=== PATIENT | male | born 1995 | race Asian ===

== ENCOUNTER 2020-07-18 23:37 | Inpatient (IN) | payer BC ==
[~2020-07-18] VITALS: Ht 177.8 cm; Wt 88.0 kg
[2020-07-19] VITALS (15 sets, daily range): BP systolic 104–140; BP diastolic 7–81
--- NOTE | 2020-07-19 | NUR ---
ED Nurse Note: pt walked into ED from home c/o 05/05 RLQ abdominal pain since this morning along with n/v. Pt denies ingestion of food substance that might have caused onset of symptoms, denies fever chills. Pt is AAOx4, breathing even and unlabored, vital signs stable.
--- NOTE | 2020-07-19 00:13 | NUR ---
ED Nurse Note: blood collected and sent to lab
--- NOTE | 2020-07-19 00:19 | Emergency Room Report ---
History of Present Illness General Chief Complaint: Abdominal Pain Source: Patient Present Illness HPI 24-year-old male with no past medical history. He presents with chief plaint abdominal pain. Onset 2 days ago. Pain initially is diffuse and had vomiting. Vomiting initially was nonbloody nonbilious. He also has chills. Pain now localized to right lower quadrant. Pain is 9 out of 10. Worse with movement. Worse with palpation. Better with rest. Denies any diarrhea. Does have decreased appetite. Pain is sharp in nature. 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 COVID-19 Screening: Negative COVID-19 COVID-19 Testing Source: [facility] Patient History Past Medical History: see triage record, old chart reviewed Past Surgical History: none Pertinent Family History: none Social History: Denies: smoking Immunizations: other Reviewed Nursing Documentation: PMH: Agreed; PSxH: Agreed Nursing Documentation-PMH Past Medical History: No Stated History Review of Systems Eye: Denies: eye pain, blurred vision ENT: Denies: ear pain, nose congestion, throat swelling Respiratory: Denies: cough, shortness of breath Cardiovascular: Denies: chest pain, palpitations Gastrointestinal: Reports: abdominal pain, nausea, vomiting; Denies: diarrhea Musculoskeletal: Denies: back pain, joint pain Skin: Denies: rash Neurological: Denies: headache, numbness Endocrine: Denies: increased thirst, increased urine Hematologic/Lymphatic: Denies: easy bruising All Other Systems: negative except mentioned in HPI Physical Exam Vital Signs Date Time Temp Pulse Resp B/P (MAP) Pulse Ox O2 Delivery O2 Flow Rate FiO2 07/18/20 23:49 98.8 90 18 120/74 (89) 96 Room Air Vitals normal Sp02 EP Interpretation: reviewed, normal General Appearance: well appearing, no apparent distress, alert Head: normocephalic, atraumatic Eyes: bilateral eye PERRL, bilateral eye EOMI ENT: hearing grossly normal, normal pharynx Neck: full range of motion, supple, no meningismus Respiratory: chest non-tender, lungs clear, normal breath sounds Cardiovascular #1: regular rate, rhythm, no murmur Gastrointestinal: normal bowel sounds, no mass, no organomegaly, no bruit, non- distended, tenderness - Right lower quadrant Musculoskeletal: back normal, normal range of motion, gait/station normal Psychiatric: mood/affect normal Medical Decision Making Diagnostic Impression: Primary Impression: Appendicitis, acute Qualified Codes: K35.30 - Acute appendicitis with localized peritonitis, without perforation or gangrene Additional Impression: Hypokalemia ER Course This patient presents with abdominal pain the right lower quadrant. CT scan showed acute appendicitis without perforation. Antibiotics given. He has hypokalemia probably from vomiting. That was replaced. I contacted Dr. Maldonado for admission. I discussed the case with Dr. Eldridge for surgical consultation. CT/MRI/US Diagnostic Results CT/MRI/US Diagnostic Results : Imaging Test Ordered: CT abdomen and pelvis Impression Read by radiologist. Appendix is dilated to 2 cm in maximal diameter. It contains several appendicolith. There is surrounding mesenteric inflammation. Last Vital Signs Date Time Temp Pulse Resp B/P (MAP) Pulse Ox O2 Delivery O2 Flow Rate FiO2 07/19/20 00:00 90 18 Room Air 07/19/20 00:00 98.8 120/74 96 Status: improved Disposition: ADMITTED INPATIENT Condition: Serious Referrals: NOT CHOSEN IPA/,REFERRING (PCP) Ryan Denis MD Jul 19, 2020 00:19
--- NOTE | 2020-07-19 00:25 | NUR ---
ED Nurse Note: urine and COVID swab sent to lab
[2020-07-19 00:26] LABS: MEAN CORPUSCULAR VOLUME 83 FL (80-99); PLATELET COUNT 278 K/UL (150-450); RED BLOOD COUNT 5.57 M/UL (4.70-6.10); RED CELL DISTRIBUTION WIDTH 13.6 % (11.6-14.8); WHITE BLOOD COUNT 21.3 K/UL (4.8-10.8)
[2020-07-19] MEDS ORDERED: HYDROmorphone 1mg/ml Carpuject IVP ONE ×2 (00:30→01:15)
--- NOTE | 2020-07-19 00:31 | NUR ---
ED Nurse Note: pt went down to CT via w/c accompanied by CT staff. Pt in stable condition.
[2020-07-19 00:40] LABS: APPEARANCE,URINE CLEAR; BILIRUBIN, URINE NEGATIVE (NEGATIVE); GLUCOSE, URINE (UA) NEGATIVE (NEGATIVE); KETONES,URINE 2+ (NEGATIVE); LEUKOCYTE ESTERASE ,URINE 1+ (NEGATIVE); NITRITE,URINE NEGATIVE (NEGATIVE); PH,URINE 6.5 (4.5-8.0); PROTEIN,URINE 2+ (NEGATIVE); UROBILINOGEN,URINE NORMAL MG/DL (0.0-1.0)
[2020-07-19 00:46] LABS: ALANINE AMINOTRANSFERASE 33 U/L (12-78); ALBUMIN 4.1 G/DL (3.4-5.0); ALBUMIN/GLOBULIN RATIO 1.1 (1.0-2.7); ALKALINE PHOSPHATASE 64 U/L (46-116); ANION GAP 8 mmol/L (5-15); ASPARTATE AMINO TRANSFERASE 28 U/L (15-37); BILIRUBIN,TOTAL 1.2 MG/DL (0.2-1.0); BLOOD UREA NITROGEN 9 mg/dL (7-18); CARBON DIOXIDE 32 MMOL/L (21-32); CHLORIDE 95 MMOL/L (98-107); CREATININE 1.2 MG/DL (0.55-1.30); SODIUM 135 MMOL/L (136-145)
[2020-07-19 00:50] LABS: POTASSIUM 2.6 MMOL/L (3.5-5.1)
[2020-07-19 00:51] LABS: BILIRUBIN,DIRECT 0.3 MG/DL (0.0-0.3)
[2020-07-19 00:57] LABS: COLOR,URINE YELLOW
--- NOTE | 2020-07-19 00:58 | NUR ---
ED Nurse Note: pt back from CT in stable condition
--- NOTE | 2020-07-19 01:01 | NUR ---
ED Nurse Note: EDMD aware pt c/o 10/10 abdominal pain.
[2020-07-19] MEDS ORDERED: HYDROmorphone 1mg/ml Carpuject ONE (01:05)
--- NOTE | 2020-07-19 01:18 | Diagnostic Imaging Report ---
EXAM: CT Abdomen and Pelvis Without Intravenous Contrast CLINICAL HISTORY: ABD PAIN TECHNIQUE: Axial computed tomography images of the abdomen and pelvis without intravenous contrast. CTDI is 6.8 mGy and DLP is 407.1 mGy-cm. One or more of the following dose reduction techniques were used: automated exposure control, adjustment of the mA and/or kV according to patient size, use of iterative reconstruction technique. Coronal and sagittal reconstructions are performed COMPARISON: No relevant prior studies available. FINDINGS: Lung bases: Unremarkable. No mass. No consolidation. ABDOMEN: Liver: Mildly enlarged fatty liver. Gallbladder and bile ducts: Unremarkable. No calcified stones. No ductal dilation. Pancreas: Unremarkable. No ductal dilation. Spleen: Unremarkable. No splenomegaly. Adrenals: Unremarkable. No mass. Kidneys and ureters: Unremarkable. No obstructing stones. No hydronephrosis. Stomach and bowel: Unremarkable. No obstruction. No mucosal thickening. PELVIS: Appendix: Appendix is dilated to 2 cm in maximum diameter, contains several appendicoliths, measuring up to 9 mm, surrounded by moderate amount of mesenteric inflammation, characteristic of appendicitis. Mesenteric inflammation from appendicitis abuts right psoas and iliopsoas muscles Bladder: Unremarkable. No stones. Reproductive: Unremarkable as visualized. ABDOMEN and PELVIS: Intraperitoneal space: Small pockets gas from contained perforation adjacent to appendicitis is best seen on series 4 image 102. Bones/joints: No acute findings. Soft tissues: Unremarkable. Vasculature: Unremarkable. No abdominal aortic aneurysm. Lymph nodes: Unremarkable. No enlarged lymph nodes. IMPRESSION: 1. Appendicitis complicated by contained perforation. 2. Mildly enlarged fatty liver. <MYCVCSECTION> Communications: 07/19/20 01:25 Call Doctor Regarding Appendicitis, called Ryan Denis MD on 07/19 01:25 (-08:00)
[2020-07-19] MEDS ORDERED: Piperacillin/Tazobactam 3.375 GM in NS 110 ML IVPB ONE ×2 (01:30→16:15)
[2020-07-19] MEDS ORDERED: Morphine Sulfate 4mg/ml Inj (IV USE ONLY) IVP PRN (02:00)
--- NOTE | 2020-07-19 02:29 | NUR ---
ED Nurse Note: pt laying in bed awake, no complaints from pt at the moment. States stomach continues to feel tender, but does not want pain medicine at the moment.
--- NOTE | 2020-07-19 03:10 | NUR ---
TRANSFER TO FLOOR: Patient transferred to [facility] as ordered via w/c accompanied by staff midwife/apprenticeship director, per EDMD ok to transfer pt. Report given to BRANDON Gerard. Belongings and admission packet given to BRANDON Gerard. Family informed of transfer.
--- NOTE | 2020-07-19 04:17 | NUR ---
NURSE NOTES: Called with regards to admission orders, left a message, waiting for a call back.
--- NOTE | 2020-07-19 05:45 | NUR ---
NURSE NOTES: Received admission orders from . Entered and carried out.
[2020-07-19] MEDS ORDERED: Morphine Sulfate 2mg/ml Inj(IV/IM USE ONLY) IVP PRN ×2 (06:00→09:30)
--- NOTE | 2020-07-19 07:30 | NUR ---
NURSE NOTES: Patient lying in bed awake. Complain of pain 7/10 on abdominal area. Will administer pain medication as ordered. Skin intact and dry. IV dressing intact and dry. Bed lowest position and side rails up. Call light within reach. Will continue to monitor.
[2020-07-19] MEDS: Heparin 5000 units/ml inj SUBQ SCH ×2 (08:19→21:25)
--- NOTE | 2020-07-19 09:17 | NUR ---
NURSE NOTES: Spoke to regarding pain medication and new order received. Order read back and carried out.
--- NOTE | 2020-07-19 11:03 | Consultation ---
History of Present Illness General Date patient seen: Jul 19, 2020 Reason for Hospitalization: Abdominal Pain Present Illness HPI 24M otherwise healthy presented to [facility] c/o abd pain for 2 days. woke up 2 days ago in middle of night with discomfort, nausea and emesis. non blood b ilious emesis. felt it was stomach bug but then began to develop worsening RLQ tenderness. in ED noted to have leukocytosis and CT consistent with acute appy. surgery called to evaluate and assist with care. Allergies: Coded Allergies: No Known Allergies (Unverified , 07/18/20) COVID-19 Screening Contact w/high risk pt: No Experienced COVID-19 symptoms?: No Coronavirus symptoms experienc: Nausea/Vomiting Patient History History Provided By: Patient, Medical Record, PMD Healthcare decision maker Resuscitation status Advanced Directive on File Past Medical/Surgical History Past Medical/Surgical History: (1) Hypokalemia (2) Appendicitis, acute Review of Systems Review of Symptoms General ROS: no weight loss or fever Psychological ROS: no depression or mood changes, no memory loss Ophthalmic ROS: no visual changes or eye irritation ENT ROS: no nasal congestion, hearing loss, dizziness Allergy and Immunology ROS: no allergic symptoms or urticaria Hematological and Lymphatic ROS: no swollen glands, unusual bleeding or bruising Endocrine ROS: no polyuria, polydipsia, weight changes, temperature intolerance Respiratory ROS: no cough, shortness of breath, or wheezing Cardiovascular ROS: no chest pain or dyspnea on exertion Gastrointestinal ROS: + abdominal pain, -bright red blood in stool. Musculoskeletal ROS: no myalgias or arthralgias Neurological ROS: no TIA or stroke symptoms Dermatological ROS: no new or changing skin lesions, rashes or pruritis Physical Exam Physical Exam General appearance: alert, cooperative, no distress, appears stated age Head: Normocephalic, without obvious abnormality, atraumatic Eyes: conjunctivae/corneas clear. PERRL, EOM's intact. Fundi benign Throat: Lips, mucosa, and tongue normal. Teeth and gums normal Neck: supple, symmetrical, trachea midline, no adenopathy, thyroid: not enlarged, symmetric, no tenderness/mass/nodules, no carotid bruit and no JVD Lungs: clear to auscultation bilaterally Heart: regular rate and rhythm, S1, S2 normal, no murmur, click, rub or gallop Abdomen: soft, RLQ-tender. Bowel sounds normal. No masses, no organomegaly Extremities: extremities normal, atraumatic, no cyanosis or edema Pulses: 2+ and symmetric Skin: Skin color, texture, turgor normal. No rashes or lesions Neurologic: Grossly normal Last 24 Hour Vital Signs Date Time Temp Pulse Resp B/P (MAP) Pulse Ox O2 Delivery O2 Flow Rate FiO2 07/19/20 08:00 99.5 97 18 131/81 (98) 98 07/19/20 04:19 Room Air 07/19/20 03:10 99.0 92 18 128/83 100 Room Air 07/19/20 01:36 98.8 07/19/20 00:52 98.8 07/19/20 00:00 90 18 Room Air 07/19/20 00:00 98.8 90 18 120/74 96 Room Air 07/18/20 23:49 98.8 90 18 120/74 (89) 96 Room Air Intake and Output 07/18/20 07/19/20 19:00 07:00 Intake Total 1110 ml Output Total 0 ml Balance 1110 ml Intake Oral 0 ml IV Total 1110 ml Output Urine Total 0 ml # Voids 1 Laboratory Tests Test 07/19/20 00:05 07/19/20 00:17 White Blood Count 21.3 K/UL (4.8-10.8) H Red Blood Count 5.57 M/UL (4.70-6.10) Hemoglobin 17.0 G/DL (14.2-18.0) Hematocrit 46.0 % (42.0-52.0) Mean Corpuscular Volume 83 FL (80-99) Mean Corpuscular Hemoglobin 30.6 PG (27.0-31.0) Mean Corpuscular Hemoglobin Concent 37.1 G/DL (32.0-36.0) H Red Cell Distribution Width 13.6 % (11.6-14.8) Platelet Count 278 K/UL (150-450) Mean Platelet Volume 8.5 FL (6.5-10.1) Neutrophils (%) (Auto) % (45.0-75.0) Lymphocytes (%) (Auto) % (20.0-45.0) Monocytes (%) (Auto) % (1.0-10.0) Eosinophils (%) (Auto) % (0.0-3.0) Basophils (%) (Auto) % (0.0-2.0) Differential Total Cells Counted 100 Neutrophils % (Manual) 88 % (45-75) H Lymphocytes % (Manual) 8 % (20-45) L Monocytes % (Manual) 4 % (1-10) Eosinophils % (Manual) 0 % (0-3) Basophils % (Manual) 0 % (0-2) Band Neutrophils 0 % (0-8) Platelet Estimate Adequate Platelet Morphology Normal Sodium Level 135 MMOL/L (136-145) L Potassium Level 2.6 MMOL/L (3.5-5.1) *L Chloride Level 95 MMOL/L (98-107) L Carbon Dioxide Level 32 MMOL/L (21-32) Anion Gap 8 mmol/L (5-15) Blood Urea Nitrogen 9 mg/dL (7-18) Creatinine 1.2 MG/DL (0.55-1.30) Estimat Glomerular Filtration Rate > 60 mL/min (>60) Glucose Level 125 MG/DL (74-106) H Calcium Level 9.0 MG/DL (8.5-10.1) Total Bilirubin 1.2 MG/DL (0.2-1.0) H Direct Bilirubin 0.3 MG/DL (0.0-0.3) Aspartate Amino Transf (AST/SGOT) 28 U/L (15-37) Alanine Aminotransferase (ALT/SGPT) 33 U/L (12-78) Alkaline Phosphatase 64 U/L (46-116) Total Protein 7.7 G/DL (6.4-8.2) Albumin 4.1 G/DL (3.4-5.0) Globulin 3.6 g/dL Albumin/Globulin Ratio 1.1 (1.0-2.7) Lipase 55 U/L (73-393) L Urine Color Yellow Urine Appearance Clear Urine pH 6.5 (4.5-8.0) Urine Specific [place] 1.015 (1.005-1.035) Urine Protein 2+ (NEGATIVE) H Urine Glucose (UA) Negative (NEGATIVE) Urine Ketones 2+ (NEGATIVE) H Urine Blood 2+ (NEGATIVE) H Urine Nitrite Negative (NEGATIVE) Urine Bilirubin Negative (NEGATIVE) Urine Urobilinogen Normal MG/DL (0.0-1.0) Urine Leukocyte Esterase 1+ (NEGATIVE) H Urine RBC 2-4 /HPF (0 - 0) H Urine WBC 0-2 /HPF (0 - 0) Urine Squamous Epithelial Cells None /LPF (NONE/OCC) Urine Bacteria None /HPF (NONE) Microbiology Date/Time Source Procedure Growth Status 07/19/20 00:05 Nasopharynx SARS-CoV-2 RdRp Gene Assay - Final Complete Height (Feet): 5 Height (Inches): 10.00 Weight (Pounds): 194 Medications Current Medications Medications (Trade) Dose Ordered Sig/Jonathan Route PRN Reason Start Time Stop Time Status Last Admin Dose Admin Acetaminophen (Tylenol) 650 mg Q4H PRN ORAL Temp >100.5 07/19/20 05:45 08/18/20 05:44 Heparin Sodium (Porcine) (Heparin 5000 units/ml) 5,000 units EVERY 12 HOURS SUBQ 07/19/20 09:00 09/02/20 08:59 07/19/20 08:19 Levofloxacin 100 ml @ 100 mls/hr Q24H IVPB 07/19/20 09:00 07/26/20 08:59 07/19/20 08:28 Morphine Sulfate (Morphine Sulfate) 2 mg Q4H PRN IVP For Pain 07/19/20 09:30 07/26/20 09:29 Ondansetron HCl (Zofran) 4 mg Q4H PRN IVP Nausea & Vomiting 07/19/20 05:45 08/18/20 05:44 Sodium Chloride 1,000 ml @ 100 mls/hr Q10H IV 07/19/20 05:45 08/18/20 05:44 07/19/20 06:38 Assessment/Plan Problem List: (1) Hypokalemia ICD Codes: E87.6 - Hypokalemia SNOMED: 14878883 (2) Appendicitis, acute Assessment & Plan: acute appendicitis with microperf of air but no abscess leukocytosis RLQ tenderness npo iv fluids iv abx consent to or for lap vs open appy may need drain which was discussed with patient thank you ICD Codes: K35.80 - Unspecified acute appendicitis SNOMED: [id number] Qualifiers: Qualified Codes: K35.30 - Acute appendicitis with localized peritonitis, without perforation or gangrene Morgan Eldridge Jul 19, 2020 11:03
--- NOTE | 2020-07-19 11:04 | Pre-Procedure Note/Attestation ---
Pre-Procedure Note/Attestation Complete Prior to Procedure Procedure Narrative: laparoscopic appendectomy possible open Indications for Procedure Pre-Operative Diagnosis: acute appendicitis Attestation I attest that I discussed the nature of the procedure; its benefits; risks and complications; and alternatives (and the risks and benefits of such alternatives), prior to the procedure, with the patient (or the patient's legal sales representative womens health). I attest that, if there was a reasonable possibility of needing a blood transfusion, the patient (or the patient's legal sales representative womens health) was given the [facility] standardized written summary, pursuant to the [employer] Blood Safety Act ([place] Health and Safety Code # 1645, as amended). I attest that I re-evaluated the patient just prior to the surgery and that there has been no change in the patient's H&P, except as documented below: Morgan Eldridge Jul 19, 2020 11:04
[2020-07-19] MEDS ORDERED: Rocuronium Bromide 50mg/5ml Inj IV ONE (11:58)
[2020-07-19] MEDS ORDERED: Succinylcholine 20mg/ml 10ml vial ONE (11:58)
[2020-07-19] MEDS ORDERED: EPINEPHrine 1mg/1ml Amp ONE (11:59)
[2020-07-19] MEDS ORDERED: Bupivacaine 0.25% Inj 30ml INJ ONE (11:59)
[2020-07-19] MEDS ORDERED: Neostigmine 1mg/ml 10ml Inj ONE (12:00)
[2020-07-19] MEDS ORDERED: Sterile Water Irrig 1000ml IRRIG ONE (12:00)
[2020-07-19] MEDS ORDERED: LR 1000ml ONE (12:00)
[2020-07-19] MEDS ORDERED: NS Irrig 1000ml ONE (12:00)
[2020-07-19] MEDS ORDERED: NS Irrig 3000ml IRRIG ONE (12:00)
--- NOTE | 2020-07-19 12:00 | History and Physical Report ---
DATE OF ADMISSION: 07/19/2020 HISTORY OF PRESENT ILLNESS: This is a 24-year-old male, who came to the emergency room for having recurrent abdominal pain, nausea, and vomiting one day prior to admission. The patient also had a fever at home. His pain level is 10/10. PAST MEDICAL HISTORY: None. ALLERGIES: None. MEDICATIONS: None. PHYSICAL EXAMINATION: GENERAL: This is a young male, who is currently awake, still complaining pain. VITAL SIGNS: Blood pressure is 128/83, pulse 92, temperature 99. HEENT: NAD. CHEST: Bilaterally clear. CARDIOVASCULAR: Regular rhythm. ABDOMEN: Soft, diffuse tenderness in right lower quadrant. EXTREMITIES: CCE. LABORATORY DATA: White count 21,000, hemoglobin 17. Chemistry panel, potassium 2.6, sodium 135. ASSESSMENT: 1. Hypokalemia. 2. Acute appendicitis. 3. Abdominal pain. PLAN: We will admit on medical floor, start IV fluid, and IV antibiotic. Consider Surgery consult. Jm Maldonado M.D. DR: LOGAN JOB#: [id number] CC:
[2020-07-19] MEDS ORDERED: Midazolam 2mg/2ml Inj ONE (12:03)
[2020-07-19] MEDS ORDERED: fentaNYL 100 mcg/2 mL IV ONE (12:03)
[2020-07-19] MEDS ORDERED: Lidocaine 1% MPF 10mg/ml 5ml ONE (12:06)
--- NOTE | 2020-07-19 12:09 | NUR ---
NURSE NOTES: Patient off unit for surgery in stable condition.
[2020-07-19] MEDS ORDERED: Bacitracin 50000 Units Vial ONE ×2 (12:20→12:54)
--- NOTE | 2020-07-19 12:28 | General Progress Note ---
Subjective ROS Limited/Unobtainable: Yes Allergies: Coded Allergies: No Known Allergies (Unverified , 07/18/20) Objective Last 24 Hour Vital Signs Date Time Temp Pulse Resp B/P (MAP) Pulse Ox O2 Delivery O2 Flow Rate FiO2 07/19/20 12:00 100.4 97 18 126/7 (46) 97 07/19/20 09:00 Room Air 07/19/20 08:00 99.5 97 18 131/81 (98) 98 07/19/20 04:19 Room Air 07/19/20 03:10 99.0 92 18 128/83 100 Room Air 07/19/20 01:36 98.8 07/19/20 00:52 98.8 07/19/20 00:00 90 18 Room Air 07/19/20 00:00 98.8 90 18 120/74 96 Room Air 07/18/20 23:49 98.8 90 18 120/74 (89) 96 Room Air Intake and Output 07/18/20 07/19/20 19:00 07:00 Intake Total 1110 ml Output Total 0 ml Balance 1110 ml Intake Oral 0 ml IV Total 1110 ml Output Urine Total 0 ml # Voids 1 Laboratory Tests 07/19/20 00:05: White Blood Count 21.3H, Red Blood Count 5.57, Hemoglobin 17.0, Hematocrit 46.0, Mean Corpuscular Volume 83, Mean Corpuscular Hemoglobin 30.6, Mean Corpuscular Hemoglobin Concent 37.1H, Red Cell Distribution Width 13.6, Platelet Count 278, Mean Platelet Volume 8.5, Neutrophils (%) (Auto) , Lymphocytes (%) (Auto) , Monocytes (%) (Auto) , Eosinophils (%) (Auto) , Basophils (%) (Auto) , Differential Total Cells Counted 100, Neutrophils % (Manual) 88H, Lymphocytes % (Manual) 8L, Monocytes % (Manual) 4, Eosinophils % (Manual) 0, Basophils % (Manual) 0, Band Neutrophils 0, Platelet Estimate Adequate, Platelet Morphology Normal, Sodium Level 135L, Potassium Level 2.6*L, Chloride Level 95L, Carbon Dioxide Level 32, Anion Gap 8, Blood Urea Nitrogen 9, Creatinine 1.2, Estimat Glomerular Filtration Rate > 60, Glucose Level 125H, Calcium Level 9.0, Total Bilirubin 1.2H, Direct Bilirubin 0.3, Aspartate Amino Transf (AST/SGOT) 28, Alanine Aminotransferase (ALT/SGPT) 33, Alkaline Phosphatase 64, Total Protein 7.7, Albumin 4.1, Globulin 3.6, Albumin/Globulin Ratio 1.1, Lipase 55L 07/19/20 00:17: Urine Color Yellow, Urine Appearance Clear, Urine pH 6.5, Urine Specific [place] 1.015, Urine Protein 2+H, Urine Glucose (UA) Negative, Urine Ketones 2+H, Urine Blood 2+H, Urine Nitrite Negative, Urine Bilirubin Negative, Urine Urobilinogen Normal, Urine Leukocyte Esterase 1+H, Urine RBC 2-4H, Urine WBC 0-2, Urine Squamous Epithelial Cells None, Urine Bacteria None Height (Feet): 5 Height (Inches): 10.00 Weight (Pounds): 194 General Appearance: alert EENT: normal ENT inspection Neck: supple Cardiovascular: normal rate Respiratory/Chest: decreased breath sounds Abdomen: hypoactive bowel sounds, tender Extremities: non-tender Assessment/Plan Problem List: (1) Appendicitis, acute ICD Codes: K35.80 - Unspecified acute appendicitis SNOMED: [id number] Qualifiers: Qualified Codes: K35.30 - Acute appendicitis with localized peritonitis, without perforation or gangrene (2) Hypokalemia ICD Codes: E87.6 - Hypokalemia SNOMED: [id number] Assessment/Plan: going for surg today will fu post op rpeat labs in am Willam Mendes MD Jul 19, 2020 12:28
[2020-07-19] MEDS ORDERED: NeoSporin Gu Irrig 1ml Amp IRRIG ONE (12:54)
[2020-07-19] MEDS ORDERED: Morphine Sulfate 10mg/ml Inj ONE (12:59)
[2020-07-19] MEDS ORDERED: Glycopyrrolate 0.2mg/ml 1ml Vial ONE (12:59)
[2020-07-19] MEDS ORDERED: Sodium Chloride 10ml vial INJ ONE (12:59)
[2020-07-19] MEDS ORDERED: Ketorolac 30mg Inj ONE (13:00)
--- NOTE | 2020-07-19 13:14 | Anethesia Preoperative Eval ---
Anesthesia Pre-op PMH/ROS General Date of Evaluation: Jul 19, 2020 Time of Evaluation: 12:10 Anesthesiologist: Emma ASA Score: ASA 2 Mallampati Score Class I : Soft palate, uvula, fauces, pillars visible Class II: Soft palate, uvula, fauces visible Class III: Soft palate, base of uvula visible Class IV: Only hard plate visible Mallampati Classification: Class II Surgeon: Erin Diagnosis: Acute appendicitis Surgical Procedure: Appendectomy Anesthesia History: none Family History: no anesthesia problems Allergies: Coded Allergies: No Known Allergies (Unverified , 07/18/20) Medications: see eMAR Patient NPO?: Yes Past Medical History Cardiovascular: Denies: HTN, CAD, MT, valve dz, arrhythmia, other Pulmonary: Denies: asthma, COPD, ELENA, other Gastrointestinal/Genitourinary: Reports: GERD - mild; Denies: CRI, ESRD, other Neurologic/Psychiatric: Denies: dementia, CVA, depression/anxiety, TIA, other Endocrine: Denies: DM, hypothyroidism, steroids, other HEENT: Denies: cataract (L), cataract (R), glaucoma, AGUA CALIENTE (L), AGUA CALIENTE (R), other Hematology/Immune: Denies: anemia, DVT, bleeding disorder, other Musculoskeletal/Integumentary: Denies: OA, RA, DJD, DDD, edema, other Other: other - overweight PMH Narrative: Admitted for acute abdominal pain PSxH Narrative: none Anesthesia Pre-op Phys. Exam Physician Exam Last Vital Signs Date Time Temp Pulse Resp B/P (MAP) Pulse Ox O2 Delivery O2 Flow Rate FiO2 07/19/20 12:00 100.4 97 18 126/7 (46) 97 07/19/20 09:00 Room Air Constitutional: NAD Neurologic: CN 2-12 intact Cardiovascular: RRR, no M/R/G Respiratory: CTA Gastrointestinal: other - tenderness on palpation Airway Exam Mallampati Score: Class II MO: full Neck: flexible ROM: full Teeth: intact Dentures: no upper, no lower Anesthesia Pre-op A/P Labs Hematology Test 07/19/20 00:05 White Blood Count 21.3 K/UL (4.8-10.8) H Red Blood Count 5.57 M/UL (4.70-6.10) Hemoglobin 17.0 G/DL (14.2-18.0) Hematocrit 46.0 % (42.0-52.0) Mean Corpuscular Volume 83 FL (80-99) Mean Corpuscular Hemoglobin 30.6 PG (27.0-31.0) Mean Corpuscular Hemoglobin Concent 37.1 G/DL (32.0-36.0) H Red Cell Distribution Width 13.6 % (11.6-14.8) Platelet Count 278 K/UL (150-450) Mean Platelet Volume 8.5 FL (6.5-10.1) Neutrophils (%) (Auto) % (45.0-75.0) Lymphocytes (%) (Auto) % (20.0-45.0) Monocytes (%) (Auto) % (1.0-10.0) Eosinophils (%) (Auto) % (0.0-3.0) Basophils (%) (Auto) % (0.0-2.0) Differential Total Cells Counted 100 Neutrophils % (Manual) 88 % (45-75) H Lymphocytes % (Manual) 8 % (20-45) L Monocytes % (Manual) 4 % (1-10) Eosinophils % (Manual) 0 % (0-3) Basophils % (Manual) 0 % (0-2) Band Neutrophils 0 % (0-8) Platelet Estimate Adequate Platelet Morphology Normal Chemistry Test 07/19/20 00:05 Sodium Level 135 MMOL/L (136-145) L Potassium Level 2.6 MMOL/L (3.5-5.1) *L Chloride Level 95 MMOL/L (98-107) L Carbon Dioxide Level 32 MMOL/L (21-32) Anion Gap 8 mmol/L (5-15) Blood Urea Nitrogen 9 mg/dL (7-18) Creatinine 1.2 MG/DL (0.55-1.30) Estimat Glomerular Filtration Rate > 60 mL/min (>60) Glucose Level 125 MG/DL (74-106) H Calcium Level 9.0 MG/DL (8.5-10.1) Total Bilirubin 1.2 MG/DL (0.2-1.0) H Direct Bilirubin 0.3 MG/DL (0.0-0.3) Aspartate Amino Transf (AST/SGOT) 28 U/L (15-37) Alanine Aminotransferase (ALT/SGPT) 33 U/L (12-78) Alkaline Phosphatase 64 U/L (46-116) Total Protein 7.7 G/DL (6.4-8.2) Albumin 4.1 G/DL (3.4-5.0) Globulin 3.6 g/dL Albumin/Globulin Ratio 1.1 (1.0-2.7) Lipase 55 U/L (73-393) L Risk Assessment & Plan Assessment: ASA 2E Plan: GA with ETT PONV prevention Status Change Before Surgery: No Pre-Antibiotics Drug: Ancef 2gr Given Within 1 Hr of Incision: Yes Time Given: 12:38 Charlie Carter MD Jul 19, 2020 13:14
[2020-07-19] MEDS ORDERED: DiphenhydrAMINE 50mg/ml Inj IVP PRN (13:15)
[2020-07-19] MEDS ORDERED: Metoclopramide 10mg/2ml Inj IVP PRN (13:15)
[2020-07-19] MEDS ORDERED: LR 1000ml 1,000 ML IVLG SCH (13:15)
[2020-07-19] MEDS ORDERED: Meperidine 25mg/1ml Inj (FOR RIGORS ONLY) IV PRN (13:15)
[2020-07-19] MEDS ORDERED: Ketorolac 30mg Inj IV PRN (13:15)
--- NOTE | 2020-07-19 14:07 | Immediate Post-Op Evaluation ---
Immediate Post-Op Evalulation Immediate Post-Op Evalulation Procedure: Laparoscopic appendectomy Date of Evaluation: Jul 19, 2020 Time of Evaluation: 14:06 IV Fluids: 1000 Blood Products: NONE Estimated Blood Loss: 50 Urinary Output: n/a Blood Pressure Systolic: 128 Blood Pressure Diastolic: 70 Pulse Rate: 96 Respiratory Rate: 22 O2 Sat by Pulse Oximetry: 99 Temperature (Fahrenheit): 98.9 Pain Score (1-10): 2 Nausea: No Vomiting: No Complications none Patient Status: reacts, patent, extubated, none Hydration Status: adequate Charlie Carter MD Jul 19, 2020 14:07
--- NOTE | 2020-07-19 14:08 | Brief Operative Note ---
Immediate Post Operative Note Operative Note Pre-op Diagnosis: acute appendicitis Procedure: lap appy washout and drain Post-op Diagnosis: acute appendicitis with generalized fecal perforation / contamination Surgeon: sim Anesthesiologist: marixa Anesthesia: general, local Specimen: yes Complications: none Condition: stable Fluids: see Estimated Blood Loss: minimal Drains: DRAGAN Implant(s) used?: No Morgan Eldridge Jul 19, 2020 14:08
--- NOTE | 2020-07-19 14:51 | NUR ---
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
--- NOTE | 2020-07-19 15:10 | NUR ---
NURSE NOTES: Peg TAYLOR brought patient by bed in stable condition. Complain of pain 2/10 on surgical site. Surgical dressing intact and dry. DRAGAN x 1 patent and draining well. IV dressing intact and dry. Bed lowest position and side rails up. Call light within reach. Will continue to monitor.
--- NOTE | 2020-07-19 16:01 | Operative Note - Dictated ---
DATE OF OPERATION: 07/19/2020 PREOPERATIVE DIAGNOSIS: Acute appendicitis. POSTOPERATIVE DIAGNOSIS: Acute appendicitis with generalized perforation with fecalith material. OPERATION PERFORMED: 1. Laparoscopic appendectomy. 2. Abdominal washout with drain placement. ATTENDING SURGEON: Morgna Eldridge M.D. DESIGN MAKER: None. ANESTHESIOLOGIST: Charlie Carter M.D. ANESTHESIA: General MANAGER MEDICAL WRITING plus local. ESTIMATED BLOOD LOSS: Minimal. IV FLUIDS: Please see anesthesia records. COMPLICATIONS: None. DRAINS: A 19-[place] Jim left in the pelvis. SPECIMENS: Appendix, sent to Pathology for review. WOUND CLASSIFICATION: Class 4. INDICATIONS FOR PROCEDURE: This is a very pleasant 24-year-old male who presented to [facility] [place] with worsening bowel pain for 2 days with associated nausea and emesis. The patient was identified to have significant leukocytosis and a CT scan consistent with acute appendicitis with some bubbles of small gas around the appendix consistent with considerations of a small contained perforation, but no abscess. The patient was tender in the right lower quadrant and diffusely as well. More peritonitis in the right lower quadrant focally. Surgery was indicated and recommended. Risks, benefits, and alternatives discussed in detail. Consent obtained from the patient. OPERATIVE NOTE: The patient was taken to the operating room and placed on the operating table in supine position with the left arm tucked. All bony prominences were well padded. SCDs were placed. Preoperative time-out was taken identifying the patient, procedure, operative site, and surgical staff. General anesthesia was induced. The patient was intubated. The abdomen was prepped and draped in the standard surgical fashion. Local anesthetic was infiltrated throughout the procedure. An infraumbilical incision was made and carried down through subcutaneous tissue to the fascia. Fascia was elevated and incised. Entry into the abdomen was obtained using open Nicolle technique. A 12 mm Nicolle trocar was inserted and the abdomen was insufflated to 12-15 mmHg. Immediately, foul odor was identified. Laparoscope was inserted and it was clearly identified the patient had generalized peritonitis. The peritoneal lining was inflamed. A portion of the small bowel quadrant was inflamed. There was seropurulent fecal material throughout the abdomen identified above the liver margin with some exudate as well as well as in the right lower quadrant and pelvis as well. Secondary trocars were placed under direct visualization beginning with a 12 mm in the left lower quadrant, followed by 5 mm suprapubic. No injury from trocar placement noted. Laparoscopic instruments were inserted and the fluid was suctioned out. Following this, the cecum was identified and gently followed the tenia down to the confluence, which was underlying some omental adhesions and some small bowel. Once this was maneuvered away, terminal ileum was identified and a large necrotic appendix was noted in the right lower quadrant with perforation and fecalith material throughout in the right lower quadrant with some of the pelvis fluid. Gentle dissection identified the appendix down to its base. The wound was made between the appendix and mesoappendix at the base. Laparoscopic linear stapler was used and the base of the appendix was divided without complication. Clips were used for hemostasis and viable base identified. The mesoappendix was elevated, dissected out, and in a similar fashion with laparoscopic linear stapler divided. It was clearly identified the mesoappendix was very edematous and with inflammation. No direct abscess was identified in the mesoappendix. Clips were used for hemostasis. The appendix was placed in endoscopic retrieval bag and removed from the abdomen. Given the intraoperative findings, the abdomen was irrigated with copious amounts of warm antibiotic normal saline. Approximately, 7 liters was irrigated within the abdominal cavity in all 4 quadrants and pelvis and approximately in total 7.5 liters were evacuated. Approximately 500 mL residual was noted as compared to the intake/output. Once this was completed and the fluid was clear in all quadrants and the pelvis, decision was made to leave a drain. A 19-[place] Jim drain was placed through the left lower quadrant port and placed into the pelvis. The drain was sutured in place using a 2-0 nylon suture. At this time, hemostasis was noted. The appendix was removed. Copious amounts of warm normal irrigation was done until clear. No other abnormalities or intraoperative complications identified. Secondary trocars were removed under direct visualization, followed by the umbilical trocar site. Abdomen was desufflated. Umbilical trocar site fascia reapproximated with [id number] 0 Vicryl suture. Remaining skin incision was reapproximated using 4-0 Monocryl subcuticular interrupted sutures. Steri-Strips and dressings and drain dressing was applied. The patient tolerated the procedure well, was extubated, and taken to postanesthetic care unit in a stable condition. Morgan Eldridge M.D. DR: JESSE JOB#: [id number] CC: NISHANT
--- NOTE | 2020-07-19 16:59 | NUR ---
NURSE NOTES: Patient voided 400 ml yellow urine. No complain of discomfort. Surgical dressing changed as ordered. Patient tolerated procedure well. Will continue to monitor.
--- NOTE | 2020-07-19 19:30 | NUR ---
NURSE HAND-OFF: Important Events on Shift: Surgery today Patient Status: Stable Diet: Clear liquid Pending Orders: N/A Pending Results/Labs:CBC, BMP on 07/20 Pending MD notification:N/A Latest Vital Signs: Temperature 98.7 , Pulse 97 , B/P 109 /62 , Respiratory Rate 18 , O2 SAT 99 , Nasal Cannula, O2 Flow Rate 6 . Vital Sign Comment: Stable Latest Fong Fall Score: 35 Fall Risk: Medium Risk Safety Measures: Call light Within Reach, Bed Alarm Zone 1, Side Rails Side Rails x2, Bed position Low and Locked. Fall Precautions: Yellow Socks Door Sign Patient Fall Education Report given to Maiteo RN. Patient in stable condition.
--- NOTE | 2020-07-19 19:30 | NUR ---
NURSE NOTES: Receive a report from BRANDON José.
--- NOTE | 2020-07-19 19:40 | NUR ---
NURSE NOTES: Pt is awake and alert. Pt says that pain got so much better after surgery. Noted soreness on surgical site but tolerating at this time. Will provide pain medication as needed by orders. Surgical site dressing kept dry and intact. DRAGAN is fulled with drainage. Emptied it out and keep bulb pressed. Encourage deep breathing and cough as post-op care. On SCDs bilateral. Call to RT for I/S. Call light within reach. Will continue to monitor.
[2020-07-19] MEDS: Piperacillin/Tazobactam 3.375 GM in NS 110 ML IVPB SCH (21:23)
[2020-07-19] MEDS: Morphine Sulfate 2mg/ml Inj(IV/IM USE ONLY) IVP PRN (21:28)
[2020-07-19] MEDS ORDERED: Piperacillin/Tazobactam 3.375 GM in NS 110 ML IVPB SCH (22:00)
[2020-07-20] VITALS: BP 106/69
[2020-07-20 04:00] VITALS: BP 121/72
[2020-07-20 05:57] LABS: HEMATOCRIT 40.4 % (42.0-52.0); MEAN CORPUSCULAR VOLUME 88 FL (80-99); PLATELET COUNT 167 K/UL (150-450); RED BLOOD COUNT 4.62 M/UL (4.70-6.10); RED CELL DISTRIBUTION WIDTH 12.3 % (11.6-14.8)
[2020-07-20] MEDS: Piperacillin/Tazobactam 3.375 GM in NS 110 ML IVPB SCH ×3 (06:05→22:10)
[2020-07-20 06:23] LABS: ANION GAP 5 mmol/L (5-15); BLOOD UREA NITROGEN 9 mg/dL (7-18); CARBON DIOXIDE 28 MMOL/L (21-32); CHLORIDE 99 MMOL/L (98-107); CREATININE 0.9 MG/DL (0.55-1.30); SODIUM 133 MMOL/L (136-145)
[2020-07-20 06:40] LABS: POTASSIUM 2.6 MMOL/L (3.5-5.1)
--- NOTE | 2020-07-20 06:45 | NUR ---
NURSE NOTES: Receive a call from Lab that potassium level is 2.6.
--- NOTE | 2020-07-20 06:50 | NUR ---
NURSE NOTES: Left a message to Dr. Maldonado for critical lab value and waiting for call back. Will continue to follow up.
--- NOTE | 2020-07-20 07:17 | NUR ---
NURSE NOTES: Receive new order from Dr. Maldonado d/quinton Gomez. Order noted and carried out. Will continue to monitor.
--- NOTE | 2020-07-20 07:45 | NUR ---
NURSE NOTES: Patient is in bed awake and able to verbalize needs. Stable. Denies severe pain or SOB at this time. Patient instructed to use call light for assistance, verbalized understanding. DRAGAN noted, will monitor output. Patient is in bed in locked and lowest position with call light within reach. All safety measures provided. WIll continue to monitor.
--- NOTE | 2020-07-20 07:45 | NUR ---
NURSE HAND-OFF: Important Events on Shift: S/P lap appendectomy yesterday. Pain medication x1. Vomiting in AM. Critical Value K: 2.6 Patient Status: [] Diet: [clear liquid diet] Pending Orders: [] Pending Results/Labs:[] Pending MD notification:[] Latest Vital Signs: Temperature 99.2 , Pulse 92 , B/P 121 /72 , Respiratory Rate 18 , O2 SAT 98 , Nasal Cannula, O2 Flow Rate 6 . Vital Sign Comment: [] Latest Fong Fall Score: 35 Fall Risk: Medium Risk Safety Measures: Call light Within Reach, Bed Alarm Zone 1, Side Rails Side Rails x2, Bed position Low and Locked. Fall Precautions: Door Sign Patient Fall Education Report given to BRANDON Romero.
[2020-07-20 08:00] VITALS: BP 130/85
[2020-07-20] MEDS ORDERED: NS 275ml ONE (08:18)
[2020-07-20] MEDS: Heparin 5000 units/ml inj SUBQ SCH ×2 (08:37→21:07)
--- NOTE | 2020-07-20 08:58 | 48 Hour Post Anesthesia Eval ---
Post Anesthesia Evaluation Procedure: Laparoscopic appendectomy Date of Evaluation: Jul 20, 2020 Time of Evaluation: 08:57 Blood Pressure Systolic: 128 0: 76 Pulse Rate: 86 Respiratory Rate: 22 Temperature (Fahrenheit): 97.6 O2 Sat by Pulse Oximetry: 98 Airway: patent Nausea: No Vomiting: No Pain Intensity: 3 Hydration Status: adequate Cardiopulmonary Status: stable Mental Status/LOC: patient returned to baseline Follow-up Care/Observations: n/a Post-Anesthesia Complications: none Follow-up care needed: N/A Charlie Carter MD Jul 20, 2020 08:58
--- NOTE | 2020-07-20 09:59 | General Progress Note ---
Subjective ROS Limited/Unobtainable: No Allergies: Coded Allergies: No Known Allergies (Unverified , 07/18/20) Objective Last 24 Hour Vital Signs Date Time Temp Pulse Resp B/P (MAP) Pulse Ox O2 Delivery O2 Flow Rate FiO2 07/20/20 08:58 86 22 98 07/20/20 08:00 98.9 83 24 130/85 (100) 98 07/20/20 04:00 99.2 92 18 121/72 (88) 98 07/20/20 00:00 99.8 87 18 106/69 (81) 97 07/19/20 21:00 Room Air 07/19/20 20:00 98.9 86 18 104/77 (86) 98 07/19/20 16:15 98.7 97 18 109/62 (78) 99 07/19/20 15:45 98.7 95 18 112/62 (79) 99 07/19/20 15:15 99.2 99 18 124/79 (94) 97 07/19/20 15:10 100.1 97 17 125/79 99 Nasal Cannula 6 07/19/20 14:55 99 21 115/73 99 Nasal Cannula 6 07/19/20 14:40 94 12 116/73 99 Nasal Cannula 6 07/19/20 14:25 91 11 116/67 100 Simple Mask 6 07/19/20 14:15 93 11 116/71 100 Simple Mask 6 07/19/20 14:07 96 22 99 07/19/20 14:05 95 12 126/71 100 Simple Mask 6 07/19/20 14:00 105 18 128/78 100 Simple Mask 6 07/19/20 13:54 100.0 111 28 140/71 100 Simple Mask 6 07/19/20 12:00 100.4 97 18 126/7 (46) 97 Intake and Output 07/19/20 07/20/20 19:00 07:00 Intake Total 1200 ml 250 ml Output Total 610 ml 1670 ml Balance 590 ml -1420 ml Intake Oral 250 ml IV Total 1200 ml Output Urine Total 400 ml 1100 ml Emesis 450 ml Drainage Total 160 ml 120 ml Estimated Blood Loss 50 ml # Voids 1 3 Laboratory Tests 07/20/20 05:04: White Blood Count 10.0#, Red Blood Count 4.62L, Hemoglobin 14.0L, Hematocrit 40.4L, Mean Corpuscular Volume 88, Mean Corpuscular Hemoglobin 30.4, Mean Corpuscular Hemoglobin Concent 34.7, Red Cell Distribution Width 12.3, Platelet Count 167, Mean Platelet Volume 8.5, Neutrophils (%) (Auto) , Lymphocytes (%) (Auto) , Monocytes (%) (Auto) , Eosinophils (%) (Auto) , Basophils (%) (Auto) , Sodium Level 133L, Potassium Level 2.6*L, Chloride Level 99, Carbon Dioxide Level 28, Anion Gap 5, Blood Urea Nitrogen 9, Creatinine 0.9, Estimat Glomerular Filtration Rate > 60, Glucose Level 107H, Calcium Level 8.0L Height (Feet): 5 Height (Inches): 10.00 Weight (Pounds): 194 General Appearance: no apparent distress EENT: normal ENT inspection Neck: supple Cardiovascular: normal rate Respiratory/Chest: chest wall non-tender Abdomen: soft, other - post surgical Extremities: non-tender Assessment/Plan Problem List: (1) Appendicitis, acute ICD Codes: K35.80 - Unspecified acute appendicitis SNOMED: 97250094 Qualifiers: Qualified Codes: K35.30 - Acute appendicitis with localized peritonitis, without perforation or gangrene (2) Hypokalemia ICD Codes: E87.6 - Hypokalemia SNOMED: 84884095 Assessment/Plan: s/p surg yesterday will fu post op rpeat labs in am Willam Mendes MD Jul 20, 2020 09:59
--- NOTE | 2020-07-20 11:28 | Surgery Progress Note ---
Surgery Progress Note Subjective Procedure Performed lap appy washout and drain Additional Comments s/p lap appy. noted intraop to have acute diffuse perforated appy with contents in all quadrants s/p lap appyw ith washout drain with >150cc serous out pain from incisions +n/v +diarrhea not ready for d/c needs iv abx needs pain control cont iv fluids keep on clears if desired but do not advance diet activity as tolerated drain care dressings prn saturation IS Objective Last 24 Hour Vital Signs Date Time Temp Pulse Resp B/P (MAP) Pulse Ox O2 Delivery O2 Flow Rate FiO2 07/20/20 09:00 Room Air 07/20/20 08:58 86 22 98 07/20/20 08:00 98.9 83 24 130/85 (100) 98 07/20/20 04:00 99.2 92 18 121/72 (88) 98 07/20/20 00:00 99.8 87 18 106/69 (81) 97 07/19/20 21:00 Room Air 07/19/20 20:00 98.9 86 18 104/77 (86) 98 07/19/20 16:15 98.7 97 18 109/62 (78) 99 07/19/20 15:45 98.7 95 18 112/62 (79) 99 07/19/20 15:15 99.2 99 18 124/79 (94) 97 07/19/20 15:10 100.1 97 17 125/79 99 Nasal Cannula 6 07/19/20 14:55 99 21 115/73 99 Nasal Cannula 6 07/19/20 14:40 94 12 116/73 99 Nasal Cannula 6 07/19/20 14:25 91 11 116/67 100 Simple Mask 6 07/19/20 14:15 93 11 116/71 100 Simple Mask 6 07/19/20 14:07 96 22 99 07/19/20 14:05 95 12 126/71 100 Simple Mask 6 07/19/20 14:00 105 18 128/78 100 Simple Mask 6 07/19/20 13:54 100.0 111 28 140/71 100 Simple Mask 6 07/19/20 12:00 100.4 97 18 126/7 (46) 97 I&O Intake and Output 07/19/20 07/20/20 18:59 06:59 Intake Total 1200 ml 250 ml Output Total 610 ml 1670 ml Balance 590 ml -1420 ml Intake Oral 250 ml IV Total 1200 ml Output Urine Total 400 ml 1100 ml Emesis 450 ml Drainage Total 160 ml 120 ml Estimated Blood Loss 50 ml # Voids 1 3 Laboratory Tests Test 07/20/20 05:04 White Blood Count 10.0 K/UL (4.8-10.8) # Red Blood Count 4.62 M/UL (4.70-6.10) L Hemoglobin 14.0 G/DL (14.2-18.0) L Hematocrit 40.4 % (42.0-52.0) L Mean Corpuscular Volume 88 FL (80-99) Mean Corpuscular Hemoglobin 30.4 PG (27.0-31.0) Mean Corpuscular Hemoglobin Concent 34.7 G/DL (32.0-36.0) Red Cell Distribution Width 12.3 % (11.6-14.8) Platelet Count 167 K/UL (150-450) Mean Platelet Volume 8.5 FL (6.5-10.1) Neutrophils (%) (Auto) % (45.0-75.0) Lymphocytes (%) (Auto) % (20.0-45.0) Monocytes (%) (Auto) % (1.0-10.0) Eosinophils (%) (Auto) % (0.0-3.0) Basophils (%) (Auto) % (0.0-2.0) Sodium Level 133 MMOL/L (136-145) L Potassium Level 2.6 MMOL/L (3.5-5.1) *L Chloride Level 99 MMOL/L (98-107) Carbon Dioxide Level 28 MMOL/L (21-32) Anion Gap 5 mmol/L (5-15) Blood Urea Nitrogen 9 mg/dL (7-18) Creatinine 0.9 MG/DL (0.55-1.30) Estimat Glomerular Filtration Rate > 60 mL/min (>60) Glucose Level 107 MG/DL (74-106) H Calcium Level 8.0 MG/DL (8.5-10.1) L Assessment Post-op Diagnosis acute appendicitis with generalized fecal perforation / contamination Plan Problems: (1) Hypokalemia (2) Appendicitis, acute Assessment & Plan: acute appendicitis with microperf of air but no abscess leukocytosis RLQ tenderness npo iv fluids iv abx consent to or for lap vs open appy may need drain which was discussed with patient thank you Morgan Eldridge Jul 20, 2020 11:28
[2020-07-20 12:00] VITALS: BP 121/83
[2020-07-20] MEDS: D5 1/2NS w/KCl 40meq 1000ml 1,000 ML IV SCH (12:09)
[2020-07-20] MEDS: Morphine Sulfate 4mg/ml Inj (IV USE ONLY) IVP PRN ×2 (12:10→16:35)
--- NOTE | 2020-07-20 13:40 | General Progress Note ---
Subjective Allergies: Coded Allergies: No Known Allergies (Unverified , 07/18/20) Subjective recurrent nausea and vomiting interctable abdo pain Objective Last 24 Hour Vital Signs Date Time Temp Pulse Resp B/P (MAP) Pulse Ox O2 Delivery O2 Flow Rate FiO2 07/20/20 12:00 98.3 65 24 121/83 (96) 98 07/20/20 09:00 Room Air 07/20/20 08:58 86 22 98 07/20/20 08:00 98.9 83 24 130/85 (100) 98 07/20/20 04:00 99.2 92 18 121/72 (88) 98 07/20/20 00:00 99.8 87 18 106/69 (81) 97 07/19/20 21:00 Room Air 07/19/20 20:00 98.9 86 18 104/77 (86) 98 07/19/20 16:15 98.7 97 18 109/62 (78) 99 07/19/20 15:45 98.7 95 18 112/62 (79) 99 07/19/20 15:15 99.2 99 18 124/79 (94) 97 07/19/20 15:10 100.1 97 17 125/79 99 Nasal Cannula 6 07/19/20 14:55 99 21 115/73 99 Nasal Cannula 6 07/19/20 14:40 94 12 116/73 99 Nasal Cannula 6 07/19/20 14:25 91 11 116/67 100 Simple Mask 6 07/19/20 14:15 93 11 116/71 100 Simple Mask 6 07/19/20 14:07 96 22 99 07/19/20 14:05 95 12 126/71 100 Simple Mask 6 07/19/20 14:00 105 18 128/78 100 Simple Mask 6 07/19/20 13:54 100.0 111 28 140/71 100 Simple Mask 6 Intake and Output 07/19/20 07/20/20 19:00 07:00 Intake Total 1200 ml 250 ml Output Total 610 ml 1670 ml Balance 590 ml -1420 ml Intake Oral 250 ml IV Total 1200 ml Output Urine Total 400 ml 1100 ml Emesis 450 ml Drainage Total 160 ml 120 ml Estimated Blood Loss 50 ml # Voids 1 3 Laboratory Tests 07/20/20 05:04: White Blood Count 10.0#, Red Blood Count 4.62L, Hemoglobin 14.0L, Hematocrit 40.4L, Mean Corpuscular Volume 88, Mean Corpuscular Hemoglobin 30.4, Mean Corpu scular Hemoglobin Concent 34.7, Red Cell Distribution Width 12.3, Platelet Count 167, Mean Platelet Volume 8.5, Neutrophils (%) (Auto) , Lymphocytes (%) (Auto) , Monocytes (%) (Auto) , Eosinophils (%) (Auto) , Basophils (%) (Auto) , Sodium Level 133L, Potassium Level 2.6*L, Chloride Level 99, Carbon Dioxide Level 28, Anion Gap 5, Blood Urea Nitrogen 9, Creatinine 0.9, Estimat Glomerular Filtration Rate > 60, Glucose Level 107H, Calcium Level 8.0L Height (Feet): 5 Height (Inches): 10.00 Weight (Pounds): 194 General Appearance: alert EENT: PERRL/EOMI Neck: supple Cardiovascular: normal rate Respiratory/Chest: lungs clear Abdomen: absent bowel sounds, guarding Genitourinary/Rectal: normal genital exam Extremities: non-tender Assessment/Plan Assessment/Plan: ac appendicitis s/p appendectomy rec n/v hypokalemia iv kcl npo ivf iv abx surgery on the case Da Maldonado MD Jul 20, 2020 13:40
[2020-07-20] MEDS: Ketorolac 30mg Inj IV SCH ×2 (15:47→21:02)
[2020-07-20 16:00] VITALS: BP 134/93
--- NOTE | 2020-07-20 19:40 | NUR ---
NURSE NOTES: Receive a report from BRANDON Romero.
--- NOTE | 2020-07-20 19:45 | NUR ---
NURSE HAND-OFF: Important Events on Shift: pain management, antibiotics, ivf Patient Status: stable Diet: clear Pending Orders: n/a Pending Results/Labs:n/a Pending MD notification:n/a Latest Vital Signs: Temperature 98.2 , Pulse 74 , B/P 134 /93 , Respiratory Rate 18 , O2 SAT 98 , Nasal Cannula, O2 Flow Rate 6 . Vital Sign Comment: n/a Latest Fong Fall Score: 35 Fall Risk: Medium Risk Safety Measures: Call light Within Reach, Bed Alarm Zone 1, Side Rails Side Rails x2, Bed position Low and Locked. Fall Precautions: Door Sign Patient Fall Education Report given to Merly TAYLOR.
--- NOTE | 2020-07-20 19:50 | NUR ---
NURSE NOTES: Pt is awake and alert. Surgical site pain feeling tightness but tolerating at this time. Will provide pain medication as ordered. No nausea noted. Surgical site dressing remain clean and intact. DRAGAN inserted state with bulb compressed and drained with pinkish color. Pt is ambulating in the room and walking to bathroom steady gaits, tolerating. Encourage I/S 10times every hour while awake. On IV fluid and ATB treatment. Call light within reach. Will continue to monitor.
[2020-07-20 20:00] VITALS: BP 147/93
--- NOTE | 2020-07-20 22:10 | NUR ---
NURSE NOTES: Scheduled Toradol 30mg IVS was not effective for pain/tightness on surgical site. Given prn Morphine 2mg IVS. No nausea noted but pt is afraid of drinking water for vomiting. Will continue to monitor.
[2020-07-20] MEDS: Morphine Sulfate 2mg/ml Inj(IV/IM USE ONLY) IVP PRN (22:13)
[2020-07-21] VITALS: BP 119/69
[2020-07-21] MEDS: D5 1/2NS w/KCl 40meq 1000ml 1,000 ML IV SCH ×4 (00:04→21:02)
[2020-07-21] MEDS: Ketorolac 30mg Inj IV SCH ×4 (03:30→20:55)
[2020-07-21 04:00] VITALS: BP 130/72
[2020-07-21] MEDS: Morphine Sulfate 2mg/ml Inj(IV/IM USE ONLY) IVP PRN ×2 (06:08→14:20)
[2020-07-21] MEDS: Piperacillin/Tazobactam 3.375 GM in NS 110 ML IVPB SCH ×3 (06:08→21:02)
[2020-07-21 06:35] LABS: BASOPHILS % (AUTO) 1.2 % (0.0-2.0); EOSINOPHILS % (AUTO) 0.1 % (0.0-3.0); HEMATOCRIT 37.4 % (42.0-52.0); HEMOGLOBIN 13.2 G/DL (14.2-18.0); LYMPHOCYTES % (AUTO) 6.5 % (20.0-45.0); MEAN CORPUSCULAR VOLUME 86 FL (80-99); MONOCYTES % (AUTO) 9.5 % (1.0-10.0); NEUTROPHILS % (AUTO) 82.8 % (45.0-75.0); PLATELET COUNT 170 K/UL (150-450); RED BLOOD COUNT 4.35 M/UL (4.70-6.10); RED CELL DISTRIBUTION WIDTH 12.3 % (11.6-14.8); WHITE BLOOD COUNT 10.2 K/UL (4.8-10.8)
--- NOTE | 2020-07-21 06:45 | NUR ---
NURSE NOTES: Pt says that he feels like panic attack but after pain medication d/t pain scale 6/10, he feels better. VSS are stable. Will continue to monitor.
[2020-07-21 07:02] LABS: ALANINE AMINOTRANSFERASE 30 U/L (12-78); ALBUMIN 2.3 G/DL (3.4-5.0); ALBUMIN/GLOBULIN RATIO 0.7 (1.0-2.7); ALKALINE PHOSPHATASE 41 U/L (46-116); ANION GAP 3 mmol/L (5-15); ASPARTATE AMINO TRANSFERASE 15 U/L (15-37); BILIRUBIN,TOTAL 0.7 MG/DL (0.2-1.0); BLOOD UREA NITROGEN 10 mg/dL (7-18); CARBON DIOXIDE 30 MMOL/L (21-32); CHLORIDE 101 MMOL/L (98-107); CREATININE 0.9 MG/DL (0.55-1.30); POTASSIUM 3.2 MMOL/L (3.5-5.1); SODIUM 134 MMOL/L (136-145)
--- NOTE | 2020-07-21 07:12 | NUR ---
NURSE HAND-OFF: Important Events on Shift: pain medication x2. No nausea/ vomiting. BM x2-loose. 12hr our-DRAGAN output-100ml Patient Status: stable Diet: [clear liquid] Pending Orders: [] Pending Results/Labs:[] Pending MD notification:[] Latest Vital Signs: Temperature 98.1 , Pulse 60 , B/P 130 /72 , Respiratory Rate 18 , O2 SAT 95 , Nasal Cannula, O2 Flow Rate 6 . Vital Sign Comment: [] Latest Fong Fall Score: 35 Fall Risk: Medium Risk Safety Measures: Call light Within Reach, Bed Alarm Zone 1, Side Rails Side Rails x2, Bed position Low and Locked. Fall Precautions: Door Sign Patient Fall Education
--- NOTE | 2020-07-21 07:30 | NUR ---
HAND-OFF: Report given to BRANDON José. Round is made.
--- NOTE | 2020-07-21 07:30 | NUR ---
HAND-OFF: Report given to BRANDON José. Round is made.
--- NOTE | 2020-07-21 07:35 | NUR ---
NURSE NOTES: Patient lying in bed awake. Complain of pain 6/10 on abdominal area and pain medication given by car shifter nurse. Will continue to monitor. Surgical dressing intact and dry. [place] x1 patent and draining well. Bed lowest position and side rails up. Call light within reach. Will continue to monitor.
[2020-07-21 08:00] VITALS: BP 124/75
[2020-07-21] MEDS: Pantoprazole Inj IVP SCH (09:07)
[2020-07-21] MEDS: Heparin 5000 units/ml inj SUBQ SCH ×2 (09:17→20:53)
--- NOTE | 2020-07-21 09:56 | General Progress Note ---
Subjective ROS Limited/Unobtainable: Yes Allergies: Coded Allergies: No Known Allergies (Unverified , 07/18/20) Objective Last 24 Hour Vital Signs Date Time Temp Pulse Resp B/P (MAP) Pulse Ox O2 Delivery O2 Flow Rate FiO2 07/21/20 04:00 98.1 60 18 130/72 (91) 95 07/21/20 00:00 98.5 61 18 119/69 (86) 95 07/20/20 21:00 Room Air 07/20/20 20:00 98.1 61 18 147/93 (111) 97 07/20/20 16:00 98.2 74 18 134/93 (107) 98 07/20/20 12:00 98.3 65 24 121/83 (96) 98 Intake and Output 0 07/20/20 07/21/20 19:00 07:00 Intake Total 1350 ml Output Total 1170 ml Balance -1170 ml 1350 ml Intake Oral 150 ml IV Total 1200 ml Emesis 850 ml Drainage Total 320 ml # Voids 5 Laboratory Tests 07/21/20 05:40: White Blood Count 10.2, Red Blood Count 4.35L, Hemoglobin 13.2L, Hematocrit 37.4L, Mean Corpuscular Volume 86, Mean Corpuscular Hemoglobin 30.4, Mean Corpuscular Hemoglobin Concent 35.3, Red Cell Distribution Width 12.3, Platelet Count 170, Mean Platelet Volume 10.1, Neutrophils (%) (Auto) 82.8H, Lymphocytes (%) (Auto) 6.5L, Monocytes (%) (Auto) 9.5, Eosinophils (%) (Auto) 0.1, Basophils (%) (Auto) 1.2, Sodium Level 134L, Potassium Level 3.2L, Chloride Level 101, Carbon Dioxide Level 30, Anion Gap 3L, Blood Urea Nitrogen 10, Creatinine 0.9, Estimat Glomerular Filtration Rate > 60, Glucose Level 110H, Calcium Level 8.0L, Total Bilirubin 0.7, Aspartate Amino Transf (AST/SGOT) 15, Alanine Aminotransferase (ALT/SGPT) 30, Alkaline Phosphatase 41L, Total Protein 5.5L, Albumin 2.3L, Globulin 3.2, Albumin/Globulin Ratio 0.7L Height (Feet): 5 Height (Inches): 10.00 Weight (Pounds): 194 General Appearance: alert EENT: normal ENT inspection Neck: supple Cardiovascular: normal rate Respiratory/Chest: decreased breath sounds Abdomen: hyperactive bowel sounds - in place, hypoactive bowel sounds, other - post surg Assessment/Plan Problem List: (1) Appendicitis, acute ICD Codes: K35.80 - Unspecified acute appendicitis SNOMED: 83299577 Qualifiers: Qualified Codes: K35.30 - Acute appendicitis with localized peritonitis, without perforation or gangrene (2) Hypokalemia ICD Codes: E87.6 - Hypokalemia SNOMED: 56996333 Assessment/Plan: s/p surg will fu post op rpeat labs in am on clears pain control abx Willam Lindsey MD Jul 21, 2020 09:56
[2020-07-21 12:00] VITALS: BP 119/77
--- NOTE | 2020-07-21 14:02 | Surgery Progress Note ---
Surgery Progress Note Subjective Procedure Performed lap appy washout and drain Symptoms: improved, tolerating diet, voiding well, pain decreased Objective Last 24 Hour Vital Signs Date Time Temp Pulse Resp B/P (MAP) Pulse Ox O2 Delivery O2 Flow Rate FiO2 07/21/20 12:00 98.3 59 18 119/77 (91) 99 07/21/20 09:00 Room Air 07/21/20 08:00 98.6 73 18 124/75 (91) 98 07/21/20 04:00 98.1 60 18 130/72 (91) 95 07/21/20 00:00 98.5 61 18 119/69 (86) 95 07/20/20 21:00 Room Air 07/20/20 20:00 98.1 61 18 147/93 (111) 97 07/20/20 16:00 98.2 74 18 134/93 (107) 98 I&O Intake and Output 07/20/20 07/21/20 19:00 07:00 Intake Total 1350 ml Output Total 1170 ml Balance -1170 ml 1350 ml Intake Oral 150 ml IV Total 1200 ml Emesis 850 ml Drainage Total 320 ml # Voids 5 Dressing: dry Wound: clean Cardiovascular: RSR Respiratory: clear Abdomen: soft, non-tender, present bowel sounds Extremities: no tenderness, no cyanosis Laboratory Tests Test 07/21/20 05:40 White Blood Count 10.2 K/UL (4.8-10.8) Red Blood Count 4.35 M/UL (4.70-6.10) L Hemoglobin 13.2 G/DL (14.2-18.0) L Hematocrit 37.4 % (42.0-52.0) L Mean Corpuscular Volume 86 FL (80-99) Mean Corpuscular Hemoglobin 30.4 PG (27.0-31.0) Mean Corpuscular Hemoglobin Concent 35.3 G/DL (32.0-36.0) Red Cell Distribution Width 12.3 % (11.6-14.8) Platelet Count 170 K/UL (150-450) Mean Platelet Volume 10.1 FL (6.5-10.1) Neutrophils (%) (Auto) 82.8 % (45.0-75.0) H Lymphocytes (%) (Auto) 6.5 % (20.0-45.0) L Monocytes (%) (Auto) 9.5 % (1.0-10.0) Eosinophils (%) (Auto) 0.1 % (0.0-3.0) Basophils (%) (Auto) 1.2 % (0.0-2.0) Sodium Level 134 MMOL/L (136-145) L Potassium Level 3.2 MMOL/L (3.5-5.1) L Chloride Level 101 MMOL/L (98-107) Carbon Dioxide Level 30 MMOL/L (21-32) Anion Gap 3 mmol/L (5-15) L Blood Urea Nitrogen 10 mg/dL (7-18) Creatinine 0.9 MG/DL (0.55-1.30) Estimat Glomerular Filtration Rate > 60 mL/min (>60) Glucose Level 110 MG/DL (74-106) H Calcium Level 8.0 MG/DL (8.5-10.1) L Total Bilirubin 0.7 MG/DL (0.2-1.0) Aspartate Amino Transf (AST/SGOT) 15 U/L (15-37) Alanine Aminotransferase (ALT/SGPT) 30 U/L (12-78) Alkaline Phosphatase 41 U/L (46-116) L Total Protein 5.5 G/DL (6.4-8.2) L Albumin 2.3 G/DL (3.4-5.0) L Globulin 3.2 g/dL Albumin/Globulin Ratio 0.7 (1.0-2.7) L Assessment Post-op Diagnosis acute appendicitis with generalized fecal perforation / contamination Plan Problems: (1) Hypokalemia (2) Appendicitis, acute Assessment & Plan: acute appendicitis with microperf of air but no abscess leukocytosis RLQ tenderness npo iv fluids iv abx consent to or for lap vs open appy may need drain which was discussed with patient thank you Morgan Eldridge Jul 21, 2020 14:02
--- NOTE | 2020-07-21 15:05 | General Progress Note ---
Subjective Allergies: Coded Allergies: No Known Allergies (Unverified , 07/18/20) Subjective abdo pain better walking out side Objective Last 24 Hour Vital Signs Date Time Temp Pulse Resp B/P (MAP) Pulse Ox O2 Delivery O2 Flow Rate FiO2 07/21/20 12:00 98.3 59 18 119/77 (91) 99 07/21/20 09:00 Room Air 07/21/20 08:00 98.6 73 18 124/75 (91) 98 07/21/20 04:00 98.1 60 18 130/72 (91) 95 07/21/20 00:00 98.5 61 18 119/69 (86) 95 07/20/20 21:00 Room Air 07/20/20 20:00 98.1 61 18 147/93 (111) 97 07/20/20 16:00 98.2 74 18 134/93 (107) 98 Intake and Output 07/20/20 07/21/20 19:00 07:00 Intake Total 1350 ml Output Total 1170 ml Balance -1170 ml 1350 ml Intake Oral 150 ml IV Total 1200 ml Emesis 850 ml Drainage Total 320 ml # Voids 5 Laboratory Tests 07/21/20 05:40: White Blood Count 10.2, Red Blood Count 4.35L, Hemoglobin 13.2L, Hematocrit 37.4L, Mean Corpuscular Volume 86, Mean Corpuscular Hemoglobin 30.4, Mean Corpuscular Hemoglobin Concent 35.3, Red Cell Distribution Width 12.3, Platelet Count 170, Mean Platelet Volume 10.1, Neutrophils (%) (Auto) 82.8H, Lymphocytes (%) (Auto) 6.5L, Monocytes (%) (Auto) 9.5, Eosinophils (%) (Auto) 0.1, Basophils (%) (Auto) 1.2, Sodium Level 134L, Potassium Level 3.2L, Chloride Level 101, Carbon Dioxide Level 30, Anion Gap 3L, Blood Urea Nitrogen 10, Creatinine 0.9, Estimat Glomerular Filtration Rate > 60, Glucose Level 110H, Calcium Level 8.0L, Total Bilirubin 0.7, Aspartate Amino Transf (AST/SGOT) 15, Alanine Aminotransferase (ALT/SGPT) 30, Alkaline Phosphatase 41L, Total Protein 5.5L, Albumin 2.3L, Globulin 3.2, Albumin/Globulin Ratio 0.7L Height (Feet): 5 Height (Inches): 10.00 Weight (Pounds): 194 General Appearance: alert EENT: PERRL/EOMI Neck: supple Cardiovascular: normal rate Respiratory/Chest: lungs clear Abdomen: soft, tender Assessment/Plan Assessment/Plan: ac appendicitis s/p appendectomy rec n/v hypokalemia iv kcl leucocytosis better soft diet ivf iv abx surgery on the case Da Maldonado MD Jul 21, 2020 15:05
--- NOTE | 2020-07-21 15:47 | NUR ---
PT Note PT lorena completed, treatment initiated. Patient was able to ambulate without any AD; steady gait, denies any dizziness. Patient was instructed to increase time OOB and ambulation as tolerated. Patient is safe and independent in ambulation without any AD; no further PT needed at this time. Addendum: 07/21/20 at 1548 by DONNA RODRIGUEZ PT Amended: Links added.
[2020-07-21 16:00] VITALS: BP 119/82
--- NOTE | 2020-07-21 19:30 | NUR ---
NURSE HAND-OFF: Important Events on Shift:N/A Patient Status: Stable Diet: Clear liquid Pending Orders: N/A Pending Results/Labs:CBC,BMP on 07/22 Pending MD notification:N/A Latest Vital Signs: Temperature 98.4 , Pulse 74 , B/P 119 /82 , Respiratory Rate 18 , O2 SAT 98 , Nasal Cannula, O2 Flow Rate 6 . Vital Sign Comment: Stable Latest Fong Fall Score: 35 Fall Risk: Medium Risk Safety Measures: Call light Within Reach, Bed Alarm Zone 1, Side Rails Side Rails x2, Bed position Low and Locked. Fall Precautions: Yellow Socks Door Sign Patient Fall Education Report given to Nicol TAYLOR. Patient in stable condition.
[2020-07-21 20:00] VITALS: BP 151/85
--- NOTE | 2020-07-21 20:08 | NUR ---
nurse's notes: received patient in bed awake, alert and oriented; admits to 4-5/10 pain when at rest and 7-8/10 when ambulating/moving and after eating. lapsites x 3 covered with gauze and is CDI; DRAGAN x 1 on the LLQ also noted with scant amount of serosanguineous output; dressing is also CDI. was seen ambulating earlier; encouraged patient to increase activity, eat in small amounts and use the incentive spirometer;per patient able to reach [id number]. is passing a little bit of gas but no BM as of this time. VSS; afebrile. will continue plan of care
[2020-07-21] MEDS: Morphine Sulfate 4mg/ml Inj (IV USE ONLY) IVP PRN (20:53)
[2020-07-22 04:00] VITALS: BP 121/79
[2020-07-22] MEDS: Ketorolac 30mg Inj IV SCH ×4 (04:38→22:04)
[2020-07-22] MEDS: D5 1/2NS w/KCl 40meq 1000ml 1,000 ML IV SCH (05:44)
[2020-07-22] MEDS: Piperacillin/Tazobactam 3.375 GM in NS 110 ML IVPB SCH ×3 (05:44→22:01)
--- NOTE | 2020-07-22 06:32 | NUR ---
NURSE HAND-OFF: Important Events on Shift: patient reports 3 episodes of watery black stools; has been passing gas; diligent in using the incentive spirometer, per patient has reached 3,000; ambulating either in his room or along the hallways; pain managed well with morphine 4 mg and ATC toradol; DRAGAN output = 50 mls; will endorse to next shift. Patient Status: stable at this time Diet: see chart Pending Orders: see chart Pending Results/Labs: see chart Pending MD notification:see chart Latest Vital Signs: Temperature 99.2 , Pulse 75 , B/P 121 /79 , Respiratory Rate 18 , O2 SAT 98 , Nasal Cannula, O2 Flow Rate 6 . Vital Sign Comment: low grade fever; advised patient to increase water intake and use the incentive spirometer as ordered Latest Fong Fall Score: 35 Fall Risk: Medium Risk Safety Measures: Call light Within Reach, Bed Alarm Zone 1, Side Rails Side Rails x2, Bed position Low and Locked. Fall Precautions: Yellow Socks Door Sign Patient Fall Education Report will be given to CRN. Maribell
[2020-07-22 08:00] VITALS: BP 130/83
[2020-07-22] MEDS: Morphine Sulfate 4mg/ml Inj (IV USE ONLY) IVP PRN ×2 (09:29→22:02)
[2020-07-22] MEDS: Pantoprazole Inj IVP SCH (09:50)
[2020-07-22] MEDS: Heparin 5000 units/ml inj SUBQ SCH ×2 (09:52→22:03)
[2020-07-22 10:25] LABS: BASOPHILS % (AUTO) 1.2 % (0.0-2.0); EOSINOPHILS % (AUTO) 0.5 % (0.0-3.0); HEMATOCRIT 37.8 % (42.0-52.0); HEMOGLOBIN 13.2 G/DL (14.2-18.0); LYMPHOCYTES % (AUTO) 13.5 % (20.0-45.0); MEAN CORPUSCULAR VOLUME 85 FL (80-99); MONOCYTES % (AUTO) 15.9 % (1.0-10.0); NEUTROPHILS % (AUTO) 68.9 % (45.0-75.0); PLATELET COUNT 209 K/UL (150-450); RED BLOOD COUNT 4.44 M/UL (4.70-6.10); RED CELL DISTRIBUTION WIDTH 12.8 % (11.6-14.8); WHITE BLOOD COUNT 7.6 K/UL (4.8-10.8)
--- NOTE | 2020-07-22 10:47 | General Progress Note ---
Subjective ROS Limited/Unobtainable: Yes Allergies: Coded Allergies: No Known Allergies (Unverified , 07/18/20) Objective Last 24 Hour Vital Signs Date Time Temp Pulse Resp B/P (MAP) Pulse Ox O2 Delivery O2 Flow Rate FiO2 07/22/20 04:00 99.2 75 18 121/79 (93) 98 07/21/20 21:00 Room Air 07/21/20 20:00 98.6 85 17 151/85 (107) 100 07/21/20 16:00 98.4 74 18 119/82 (94) 98 07/21/20 12:00 98.3 59 18 119/77 (91) 99 Intake and Output 07/21/20 07/22/20 19:00 07:00 Intake Total 700 ml 1737.5 ml Output Total 50 ml Balance 700 ml 1687.5 ml Intake Oral 700 ml 500 ml IV Total 1237.5 ml Drainage Total 50 ml # Voids 3 # Bowel Movements 3 Laboratory Tests 07/22/20 08:50: White Blood Count 7.6, Red Blood Count 4.44L, Hemoglobin 13.2L, Hematocrit 37.8L , Mean Corpuscular Volume 85, Mean Corpuscular Hemoglobin 29.7, Mean Corpuscular Hemoglobin Concent 34.9, Red Cell Distribution Width 12.8, Platelet Count 209, Mean Platelet Volume 8.7, Neutrophils (%) (Auto) 68.9, Lymphocytes (%) (Auto) 13.5L, Monocytes (%) (Auto) 15.9H, Eosinophils (%) (Auto) 0.5, Basophils (%) (Auto) 1.2, Sodium Level [Pending], Potassium Level [Pending], Chloride Level [Pending], Carbon Dioxide Level [Pending], Blood Urea Nitrogen [Pending], Creatinine [Pending], Estimat Glomerular Filtration Rate [Pending], Glucose Level [Pending], Calcium Level [Pending] Height (Feet): 5 Height (Inches): 10.00 Weight (Pounds): 194 General Appearance: no apparent distress EENT: PERRL/EOMI Neck: supple Cardiovascular: normal rate Respiratory/Chest: decreased breath sounds Abdomen: hyperactive bowel sounds - drainage, other - post surgical Extremities: non-tender Assessment/Plan Problem List: (1) Appendicitis, acute ICD Codes: K35.80 - Unspecified acute appendicitis SNOMED: 10437467 Qualifiers: Qualified Codes: K35.30 - Acute appendicitis with localized peritonitis, without perforation or gangrene (2) Hypokalemia ICD Codes: E87.6 - Hypokalemia SNOMED: 65166107 Assessment/Plan: s/p surg will fu post op rpeat labs in am on clears pain control abx Willam Lindsey MD Jul 22, 2020 10:47
[2020-07-22 11:45] LABS: ANION GAP 7 mmol/L (5-15); BLOOD UREA NITROGEN 4 mg/dL (7-18); CALCIUM 7.8 MG/DL (8.5-10.1); CARBON DIOXIDE 24 MMOL/L (21-32); CHLORIDE 106 MMOL/L (98-107); CREATININE 0.7 MG/DL (0.55-1.30); POTASSIUM 3.8 MMOL/L (3.5-5.1); SODIUM 137 MMOL/L (136-145)
[2020-07-22 12:00] VITALS: BP 126/78
--- NOTE | 2020-07-22 12:11 | General Progress Note ---
Subjective Allergies: Coded Allergies: No Known Allergies (Unverified , 07/18/20) Subjective abdo pain better bm this am miladis draining 50cc walking out side Objective Last 24 Hour Vital Signs Date Time Temp Pulse Resp B/P (MAP) Pulse Ox O2 Delivery O2 Flow Rate FiO2 07/22/20 04:00 99.2 75 18 121/79 (93) 98 07/21/20 21:00 Room Air 07/21/20 20:00 98.6 85 17 151/85 (107) 100 07/21/20 16:00 98.4 74 18 119/82 (94) 98 Intake and Output 07/21/20 07/22/20 19:00 07:00 Intake Total 700 ml 1737.5 ml Output Total 50 ml Balance 700 ml 1687.5 ml Intake Oral 700 ml 500 ml IV Total 1237.5 ml Drainage Total 50 ml # Voids 3 # Bowel Movements 3 Laboratory Tests 07/22/20 08:50: White Blood Count 7.6, Red Blood Count 4.44L, Hemoglobin 13.2L, Hematocrit 37.8L , Mean Corpuscular Volume 85, Mean Corpuscular Hemoglobin 29.7, Mean Corpuscular Hemoglobin Concent 34.9, Red Cell Distribution Width 12.8, Platelet Count 209, Mean Platelet Volume 8.7, Neutrophils (%) (Auto) 68.9, Lymphocytes (%) (Auto) 13.5L, Monocytes (%) (Auto) 15.9H, Eosinophils (%) (Auto) 0.5, Basophils (%) (Auto) 1.2, Sodium Level 137, Potassium Level 3.8, Chloride Level 106, Carbon Dioxide Level 24, Anion Gap 7, Blood Urea Nitrogen 4L, Creatinine 0.7, Estimat Glomerular Filtration Rate > 60, Glucose Level 103, Calcium Level 7.8L Height (Feet): 5 Height (Inches): 10.00 Weight (Pounds): 194 General Appearance: alert EENT: normal ENT inspection Neck: supple Cardiovascular: regular rhythm Respiratory/Chest: normal breath sounds Abdomen: soft, tender Extremities: non-tender Assessment/Plan Assessment/Plan: ac appendicitis s/p appendectomy n/v resolved hypokalemia treated leucocytosis better advance diet dc ivf iv abx surgery on the case Da Maldonado MD Jul 22, 2020 12:11
[2020-07-22] MEDS ORDERED: NS 275ml ONE (15:40)
[2020-07-22 16:00] VITALS: BP 132/82
--- NOTE | 2020-07-22 19:30 | NUR ---
HAND-OFF: Report given to OSCAR TAYLOR.
[2020-07-22 20:00] VITALS: BP 138/63
[2020-07-23] MEDS: D5 1/2NS w/KCl 40meq 1000ml 1,000 ML IV SCH (00:30)
[2020-07-23] MEDS: Ketorolac 30mg Inj IV SCH ×4 (02:49→21:33)
[2020-07-23 04:00] VITALS: BP 121/72
[2020-07-23] MEDS: Piperacillin/Tazobactam 3.375 GM in NS 110 ML IVPB SCH ×3 (05:15→21:32)
--- NOTE | 2020-07-23 06:53 | NUR ---
NURSE HAND-OFF: Important Events on Shift: no significant changes noted this shift; per patient pain level is better that previous days; ambulated several times around his room and along the hallways; proficient in using the incentive spirometer; total serosanguineous DRAGAN output as of this time is 50 mls. Patient Status: stable Diet: diett advanced to soft; if unable to tolerate revert back to clears Pending Orders: see orders Pending Results/Labs: see orders Pending MD notification: see orders Latest Vital Signs: Temperature 97.7 , Pulse 80 , B/P 121 /72 , Respiratory Rate 18 , O2 SAT 100 , Nasal Cannula, O2 Flow Rate 6 . Vital Sign Comment: stable, afebrile Latest Fong Fall Score: 35 Fall Risk: Medium Risk Safety Measures: Call light Within Reach, Bed Alarm Zone 1, Side Rails Side Rails x2, Bed position Low and Locked. Fall Precautions: Yellow Socks Door Sign Patient Fall Education Report will be given to Jocelyn Chow RN.
--- NOTE | 2020-07-23 07:30 | NUR ---
NURSE NOTES: Received report from BRANDON Camarena. Rounding done. Pt a/o x 4, having breakfast. No SOB noted. Denies any pain at this time. Abd surgical site dressing is dry/intact. Lt FA IV is patent with Zosyn. Bed in lowest position, call light within reach. Will continue to monitor.
[2020-07-23] MEDS: Morphine Sulfate 4mg/ml Inj (IV USE ONLY) IVP PRN (07:55)
[2020-07-23 08:00] VITALS: BP 137/82
--- NOTE | 2020-07-23 08:12 | General Progress Note ---
Subjective ROS Limited/Unobtainable: No Allergies: Coded Allergies: No Known Allergies (Unverified , 07/18/20) Objective Last 24 Hour Vital Signs Date Time Temp Pulse Resp B/P (MAP) Pulse Ox O2 Delivery O2 Flow Rate FiO2 07/23/20 04:00 97.7 80 18 121/72 (88) 100 07/22/20 21:00 Room Air 07/22/20 20:00 98.3 65 19 138/63 (88) 99 07/22/20 16:52 99.8 07/22/20 16:00 99.8 60 18 132/82 (99) 99 07/22/20 12:00 99.3 56 18 126/78 (94) 99 07/22/20 09:00 Room Air Intake and Output 07/22/20 07/23/20 19:00 07:00 Intake Total 400 ml 410.0 ml Output Total 50 ml 50 ml Balance 350 ml 360.0 ml Intake Oral 400 ml 300 ml IV Total 110.0 ml Drainage Total 50 ml 50 ml # Bowel Movements 2 Laboratory Tests 07/22/20 08:50: White Blood Count 7.6, Red Blood Count 4.44L, Hemoglobin 13.2L, Hematocrit 37.8L , Mean Corpuscular Volume 85, Mean Corpuscular Hemoglobin 29.7, Mean Corpuscular Hemoglobin Concent 34.9, Red Cell Distribution Width 12.8, Platelet Count 209, Mean Platelet Volume 8.7, Neutrophils (%) (Auto) 68.9, Lymphocytes (%) (Auto) 13.5L, Monocytes (%) (Auto) 15.9H, Eosinophils (%) (Auto) 0.5, Basophils (%) (Auto) 1.2, Sodium Level 137, Potassium Level 3.8, Chloride Level 106, Carbon Dioxide Level 24, Anion Gap 7, Blood Urea Nitrogen 4L, Creatinine 0.7, Estimat Glomerular Filtration Rate > 60, Glucose Level 103, Calcium Level 7.8L Height (Feet): 5 Height (Inches): 10.00 Weight (Pounds): 194 General Appearance: no apparent distress EENT: normal ENT inspection Neck: supple Cardiovascular: normal rate Respiratory/Chest: decreased breath sounds Abdomen: normal bowel sounds, non tender, soft Extremities: non-tender Assessment/Plan Problem List: (1) Appendicitis, acute ICD Codes: K35.80 - Unspecified acute appendicitis SNOMED: 59072938 Qualifiers: Qualified Codes: K35.30 - Acute appendicitis with localized peritonitis, without perforation or gangrene (2) Hypokalemia ICD Codes: E87.6 - Hypokalemia SNOMED: 57730711 Assessment/Plan: s/p surg will fu post op rpeat labs in am on soft diet dc ivf dc protonix pain control abx Willam Lindsey MD Jul 23, 2020 08:12
[2020-07-23] MEDS: Heparin 5000 units/ml inj SUBQ SCH ×2 (09:22→21:34)
--- NOTE | 2020-07-23 10:40 | General Progress Note ---
Subjective Allergies: Coded Allergies: No Known Allergies (Unverified , 07/18/20) Subjective abdo pain better bm this am miladis draining 50cc walking out side Objective Last 24 Hour Vital Signs Date Time Temp Pulse Resp B/P (MAP) Pulse Ox O2 Delivery O2 Flow Rate FiO2 07/23/20 08:00 98.6 65 20 137/82 (100) 100 07/23/20 04:00 97.7 80 18 121/72 (88) 100 07/22/20 21:00 Room Air 07/22/20 20:00 98.3 65 19 138/63 (88) 99 07/22/20 16:52 99.8 07/22/20 16:00 99.8 60 18 132/82 (99) 99 07/22/20 12:00 99.3 56 18 126/78 (94) 99 Intake and Output 07/22/20 07/23/20 19:00 07:00 Intake Total 400 ml 410.0 ml Output Total 50 ml 50 ml Balance 350 ml 360.0 ml Intake Oral 400 ml 300 ml IV Total 110.0 ml Drainage Total 50 ml 50 ml # Bowel Movements 2 Height (Feet): 5 Height (Inches): 10.00 Weight (Pounds): 194 General Appearance: alert Neck: supple Cardiovascular: regular rhythm Respiratory/Chest: normal breath sounds Abdomen: soft, tender Extremities: non-tender Assessment/Plan Assessment/Plan: ac appendicitis s/p appendectomy n/v resolved hypokalemia treated leucocytosis better advance diet dc ivf iv abx surgery on the case Da Maldonado MD Jul 23, 2020 10:40
[2020-07-23 12:00] VITALS: BP 131/82
--- NOTE | 2020-07-23 13:27 | NUR ---
CASE MANAGEMENT:REVIEW SI;POD #4 LAP APPY WITH WASHOUT. DARGAN DRAINS IN PLACE 99.8 80 20 137/82 97% ON RA CA 7.8 IS;TORADOL IV Q6 ZOSYN IV Q8 MORPHINE SULFATE IV Q4 PRN MED SURG STATUS DCP;FROM HOME PLAN; PAIN MANAGEMENT ADVANCE DIET TOLERATED
[2020-07-23 16:00] VITALS: BP 128/74
--- NOTE | 2020-07-23 17:26 | Surgery Progress Note ---
Surgery Progress Note Subjective Procedure Performed lap appy washout and drain Symptoms: improved Additional Comments d/c plan tomorrow had emesis with breakfast Objective Last 24 Hour Vital Signs Date Time Temp Pulse Resp B/P (MAP) Pulse Ox O2 Delivery O2 Flow Rate FiO2 07/23/20 12:00 98.9 75 18 131/82 (98) 97 07/23/20 09:00 Room Air 07/23/20 08:00 98.6 65 20 137/82 (100) 100 07/23/20 04:00 97.7 80 18 121/72 (88) 100 07/22/20 21:00 Room Air 07/22/20 20:00 98.3 65 19 138/63 (88) 99 I&O Intake and Output 07/22/20 07/23/20 19:00 07:00 Intake Total 400 ml 437.5 ml Output Total 50 ml 50 ml Balance 350 ml 387.5 ml Intake Oral 400 ml 300 ml IV Total 137.5 ml Drainage Total 50 ml 50 ml # Bowel Movements 2 Assessment Post-op Diagnosis acute appendicitis with generalized fecal perforation / contamination Plan Problems: (1) Hypokalemia (2) Appendicitis, acute Assessment & Plan: acute appendicitis with microperf of air but no abscess leukocytosis RLQ tenderness npo iv fluids iv abx consent to or for lap vs open appy may need drain which was discussed with patient thank you Morgan Eldridge Jul 23, 2020 17:26
--- NOTE | 2020-07-23 19:30 | NUR ---
NURSE HAND-OFF: Important Events on Shift:No new event Patient Status: stable Diet: soft Pending Orders: n/a Pending Results/Labs:n/a Pending MD notification:n/a Latest Vital Signs: Temperature 99.4 , Pulse 77 , B/P 128 /74 , Respiratory Rate 18 , O2 SAT 99 , Nasal Cannula, O2 Flow Rate 6 . Vital Sign Comment: stable Latest Fong Fall Score: 35 Fall Risk: Medium Risk Safety Measures: Call light Within Reach, Bed Alarm Zone 1, Side Rails Side Rails x2, Bed position Low and Locked. Fall Precautions: Yellow Socks Door Sign Patient Fall Education Report given to BRANDON Downs.
[2020-07-23 20:00] VITALS: BP 129/80
--- NOTE | 2020-07-23 20:05 | NUR ---
NURSES NOTE: Report received from BRANDON KRAUS. Rounds completed. Pt in bed, A/OX4, denies pain at this time. No outward s/s of distress noted. Breathing pattern is even and unlabored on RA. Dressing- abdomen clean dry intact. DRAGAN drain L side abdomen is in place, engaged correctly. IV L FA, intact, hep locked. All due medications will be given. Bed at lowest level. Call light within reach. Pt will continue to be monitored.
[2020-07-24 04:00] VITALS: BP 118/74
[2020-07-24] MEDS: Ketorolac 30mg Inj IV SCH ×2 (04:14→10:58)
[2020-07-24] MEDS: Piperacillin/Tazobactam 3.375 GM in NS 110 ML IVPB SCH (05:28)
[2020-07-24 08:00] VITALS: BP 124/69
[2020-07-24 08:38] LABS: BASOPHILS % (AUTO) 1.1 % (0.0-2.0); EOSINOPHILS % (AUTO) 1.3 % (0.0-3.0); HEMATOCRIT 37.9 % (42.0-52.0); HEMOGLOBIN 13.3 G/DL (14.2-18.0); LYMPHOCYTES % (AUTO) 13.5 % (20.0-45.0); MEAN CORPUSCULAR VOLUME 87 FL (80-99); MONOCYTES % (AUTO) 11.7 % (1.0-10.0); NEUTROPHILS % (AUTO) 72.4 % (45.0-75.0); PLATELET COUNT 294 K/UL (150-450); RED BLOOD COUNT 4.36 M/UL (4.70-6.10); RED CELL DISTRIBUTION WIDTH 13.1 % (11.6-14.8); WHITE BLOOD COUNT 12.4 K/UL (4.8-10.8)
[2020-07-24] MEDS ORDERED: NS 275ml ONE (08:59)
[2020-07-24] MEDS ORDERED: Tubing IV Secondary IV ONE (08:59)
[2020-07-24 09:00] LABS: ANION GAP 6 mmol/L (5-15); BLOOD UREA NITROGEN 9 mg/dL (7-18); CALCIUM 8.4 MG/DL (8.5-10.1); CARBON DIOXIDE 27 MMOL/L (21-32); CHLORIDE 103 MMOL/L (98-107); CREATININE 0.7 MG/DL (0.55-1.30); POTASSIUM 3.3 MMOL/L (3.5-5.1); SODIUM 136 MMOL/L (136-145)
--- NOTE | 2020-07-24 09:23 | NUR ---
NURSE HAND-OFF: Important Events on Shift:[N/A] Patient Status: [STABLE] Diet: [REGULAR] Pending Orders: [NONE] Pending Results/Labs:[NONE] Pending MD notification:[NONE] Latest Vital Signs: Temperature 98.1 , Pulse 78 , B/P 124 /69 , Respiratory Rate 18 , O2 SAT 97 , Nasal Cannula, O2 Flow Rate 6 . Vital Sign Comment: [WNL] Latest Fong Fall Score: 35 Fall Risk: Medium Risk Safety Measures: Call light Within Reach, Bed Alarm Zone 1, Side Rails Side Rails x2, Bed position Low and Locked. Fall Precautions: Yellow Socks Door Sign Patient Fall Education Report given to [LAURA RN/JAMESON RN].
--- NOTE | 2020-07-24 09:23 | General Progress Note ---
Subjective ROS Limited/Unobtainable: Yes Allergies: Coded Allergies: No Known Allergies (Unverified , 07/18/20) Objective Last 24 Hour Vital Signs Date Time Temp Pulse Resp B/P (MAP) Pulse Ox O2 Delivery O2 Flow Rate FiO2 07/24/20 08:00 98.1 18 124/69 (87) 97 07/24/20 04:00 98.2 78 19 118/74 (89) 99 07/23/20 21:00 Room Air 07/23/20 20:00 100.0 72 20 129/80 (96) 98 07/23/20 16:00 99.4 77 18 128/74 (92) 99 07/23/20 12:00 98.9 75 18 131/82 (98) 97 Intake and Output 07/23/20 07/24/20 18:59 06:59 Intake Total 592.5 ml 480 ml Output Total 40 ml 25 ml Balance 552.5 ml 455 ml Intake Oral 400 ml 480 ml IV Total 192.5 ml Drainage Total 40 ml 25 ml # Voids 3 1 Laboratory Tests 07/24/20 07:50: White Blood Count 12.4H, Red Blood Count 4.36L, Hemoglobin 13.3L, Hematocrit 37.9L, Mean Corpuscular Volume 87, Mean Corpuscular Hemoglobin 30.6, Mean Corpuscular Hemoglobin Concent 35.1, Red Cell Distribution Width 13.1, Platelet Count 294, Mean Platelet Volume 7.5, Neutrophils (%) (Auto) 72.4, Lymphocytes (%) (Auto) 13.5L, Monocytes (%) (Auto) 11.7H, Eosinophils (%) (Auto) 1.3, Basophils (%) (Auto) 1.1, Sodium Level 136, Potassium Level 3.3L, Chloride Level 103, Carbon Dioxide Level 27, Anion Gap 6, Blood Urea Nitrogen 9, Creatinine 0.7, Estimat Glomerular Filtration Rate > 60, Glucose Level 96, Calcium Level 8.4L Height (Feet): 5 Height (Inches): 10.00 Weight (Pounds): 194 General Appearance: no apparent distress EENT: normal ENT inspection Neck: supple Cardiovascular: normal rate Respiratory/Chest: decreased breath sounds Abdomen: soft, hypoactive bowel sounds Extremities: non-tender Assessment/Plan Problem List: (1) Appendicitis, acute ICD Codes: K35.80 - Unspecified acute appendicitis SNOMED: 99736644 Qualifiers: Qualified Codes: K35.30 - Acute appendicitis with localized peritonitis, without perforation or gangrene (2) Hypokalemia ICD Codes: E87.6 - Hypokalemia SNOMED: 26462386 Assessment/Plan: s/p surg will fu post op rpeat labs in am on soft diet pain control abx pending possible dc Willam Lindsey MD Jul 24, 2020 09:23
[2020-07-24] MEDS: Heparin 5000 units/ml inj SUBQ SCH (10:58)
[2020-07-24 12:00] VITALS: BP 122/81
--- NOTE | 2020-07-24 13:38 | NUR ---
CASE MANAGEMENT:REVIEW SI;POD #5 LAP APPY WITH WASHOUT. PERITONITIS. 100.0 78 20 129/80 97% ON RA WBC 12.4 K+ 3.3 IS;TORADOL IV Q6 ZOSYN IV Q8 HEPARIN SQ Q12 MED SURG STATUS DCP;FROM HOME
--- NOTE | 2020-07-24 14:45 | Surgery Progress Note ---
Surgery Progress Note Subjective Procedure Performed lap appy washout and drain Additional Comments doing well drain removed output low d/c home today f/u given rx given Objective Last 24 Hour Vital Signs Date Time Temp Pulse Resp B/P (MAP) Pulse Ox O2 Delivery O2 Flow Rate FiO2 07/24/20 12:00 98.6 60 18 122/81 (95) 97 07/24/20 11:28 98.1 07/24/20 09:00 Room Air 07/24/20 08:00 98.1 18 124/69 (87) 97 07/24/20 04:00 98.2 78 19 118/74 (89) 99 07/23/20 21:00 Room Air 07/23/20 20:00 100.0 72 20 129/80 (96) 98 07/23/20 16:00 99.4 77 18 128/74 (92) 99 I&O Intake and Output 07/23/20 07/24/20 19:00 07:00 Intake Total 565.0 ml 480 ml Output Total 40 ml 25 ml Balance 525.0 ml 455 ml Intake Oral 400 ml 480 ml IV Total 165.0 ml Drainage Total 40 ml 25 ml # Voids 3 1 Laboratory Tests Test 07/24/20 07:50 White Blood Count 12.4 K/UL (4.8-10.8) H Red Blood Count 4.36 M/UL (4.70-6.10) L Hemoglobin 13.3 G/DL (14.2-18.0) L Hematocrit 37.9 % (42.0-52.0) L Mean Corpuscular Volume 87 FL (80-99) Mean Corpuscular Hemoglobin 30.6 PG (27.0-31.0) Mean Corpuscular Hemoglobin Concent 35.1 G/DL (32.0-36.0) Red Cell Distribution Width 13.1 % (11.6-14.8) Platelet Count 294 K/UL (150-450) Mean Platelet Volume 7.5 FL (6.5-10.1) Neutrophils (%) (Auto) 72.4 % (45.0-75.0) Lymphocytes (%) (Auto) 13.5 % (20.0-45.0) L Monocytes (%) (Auto) 11.7 % (1.0-10.0) H Eosinophils (%) (Auto) 1.3 % (0.0-3.0) Basophils (%) (Auto) 1.1 % (0.0-2.0) Sodium Level 136 MMOL/L (136-145) Potassium Level 3.3 MMOL/L (3.5-5.1) L Chloride Level 103 MMOL/L (98-107) Carbon Dioxide Level 27 MMOL/L (21-32) Anion Gap 6 mmol/L (5-15) Blood Urea Nitrogen 9 mg/dL (7-18) Creatinine 0.7 MG/DL (0.55-1.30) Estimat Glomerular Filtration Rate > 60 mL/min (>60) Glucose Level 96 MG/DL (74-106) Calcium Level 8.4 MG/DL (8.5-10.1) L Assessment Post-op Diagnosis acute appendicitis with generalized fecal perforation / contamination Plan Problems: (1) Hypokalemia (2) Appendicitis, acute Assessment & Plan: acute appendicitis with microperf of air but no abscess leukocytosis RLQ tenderness npo iv fluids iv abx consent to or for lap vs open appy may need drain which was discussed with patient thank you Morgan Eldridge Jul 24, 2020 14:45
--- NOTE | 2020-07-24 15:12 | General Progress Note ---
Subjective Allergies: Coded Allergies: No Known Allergies (Unverified , 07/18/20) Subjective abdo pain better bm this am miladis removed by surgery walking out side Objective Last 24 Hour Vital Signs Date Time Temp Pulse Resp B/P (MAP) Pulse Ox O2 Delivery O2 Flow Rate FiO2 07/24/20 12:00 98.6 60 18 122/81 (95) 97 07/24/20 11:28 98.1 07/24/20 09:00 Room Air 07/24/20 08:00 98.1 18 124/69 (87) 97 07/24/20 04:00 98.2 78 19 118/74 (89) 99 07/23/20 21:00 Room Air 07/23/20 20:00 100.0 72 20 129/80 (96) 98 07/23/20 16:00 99.4 77 18 128/74 (92) 99 Intake and Output 07/23/20 07/24/20 19:00 07:00 Intake Total 565.0 ml 480 ml Output Total 40 ml 25 ml Balance 525.0 ml 455 ml Intake Oral 400 ml 480 ml IV Total 165.0 ml Drainage Total 40 ml 25 ml # Voids 3 1 Laboratory Tests 07/24/20 07:50: White Blood Count 12.4H, Red Blood Count 4.36L, Hemoglobin 13.3L, Hematocrit 37.9L, Mean Corpuscular Volume 87, Mean Corpuscular Hemoglobin 30.6, Mean Corpuscular Hemoglobin Concent 35.1, Red Cell Distribution Width 13.1, Platelet Count 294, Mean Platelet Volume 7.5, Neutrophils (%) (Auto) 72.4, Lymphocytes (%) (Auto) 13.5L, Monocytes (%) (Auto) 11.7H, Eosinophils (%) (Auto) 1.3, Basophils (%) (Auto) 1.1, Sodium Level 136, Potassium Level 3.3L, Chloride Level 103, Carbon Dioxide Level 27, Anion Gap 6, Blood Urea Nitrogen 9, Creatinine 0.7, Estimat Glomerular Filtration Rate > 60, Glucose Level 96, Calcium Level 8.4L Height (Feet): 5 Height (Inches): 10.00 Weight (Pounds): 194 General Appearance: alert EENT: PERRL/EOMI Neck: supple Cardiovascular: regular rhythm, regularly irregular Respiratory/Chest: lungs clear Abdomen: non tender, soft Assessment/Plan Assessment/Plan: ac appendicitis s/p appendectomy n/v resolved hypokalemia treated leucocytosis better advance diet dc ivf po abx regular diet call my offic gerri de la rosa on thursday surgery on the case Da Maldonado MD Jul 24, 2020 15:12
[2020-07-24] MEDS ORDERED: LEVOFLOXACIN500 MG ORAL (15:56)
[2020-07-24] MEDS ORDERED: ACETAMINOPHEN500 M5 ORAL (15:58)
[2020-07-24] MEDS ORDERED: ZOFRAN4 M1 ORAL (15:59)
[2020-07-24 16:00] VITALS: BP 121/72
--- NOTE | 2020-07-24 16:40 | NUR ---
NURSE NOTES: Received order to d/c home. Given discharge instructions and belongings to patient. patient is aware and verbalized understanding that he needs to fallow up with Dr. Eldridge and Dr. Maldonado in one week after discharge, information given to patient. IV removed prior to d/c. pt left the floor with no signs of distress or other issues at this time. pt's sister will provide transportation. I will f/u as needed.
--- NOTE | 2020-07-25 11:31 | NUR ---
INSURANCE DC INSTRUCTIONS FAXED TO [facility] P [phone]
== END 2020-07-24 16:30 | disposition home or self-care (01) | DRG 340 ==
LOC: EMR 23:54 → 3E 07-19 01:37 → EDBEDREQ 07-19 02:41 → 3E 07-19 10:36
PROC: 0DTJ4ZZ Resection of Appendix, Percutaneous Endoscopic Approach (ICD-10-PCS; principal; 2020-07-19 12:15)
DX: K35.32 Acute appendicitis with perforation, localized peritonitis, and gangrene, without abscess (principal); E87.6 Hypokalemia; Z03.818 Encounter for observation for suspected exposure to other biological agents ruled out
CPT/HCPCS: 36415; 74176; 80048; 80053; 81003; 82248; 83690; 85007; 85025; 94003; 94150; 96361; 96365; 96375; 99285; J2250; J2405; J2710; J7030; J8499; U0002